=== PATIENT | male | born 1945 | race Caucasian/White ===

== ENCOUNTER → 2017-09-26 09:20 | Outpatient (CLI) | payer MEDICARE, SELFPAY ==
[2017-09-26 12:27] LABS: Absolute Lymphocyte Count 2.58 X10^3/ul (0.83-4.51); Absolute Neutrophil Count 6.4 X10^3/uL (2.0-7.7); Basophil# 0.06 X10^3/uL; Basophil% 0.6 % (0-1); Eosinophil# 0.66 X10^3/uL; Eosinophils% 6.2 % (0-5); Hematocrit 44.2 % (40-54); Hemoglobin 14.5 g/dl (13.0-16.5); Lymphocyte # 2.58 X10^3/ul (4.0); Lymphocyte % 24.3 % (19-41); Mean Corp Hgb Conc 32.8 g/gl (32-36); Mean Corpuscular Hgb 30.1 pg (27.0-32.0); Mean Corpuscular Volume 91.9 fL (80-94); Mean Platelet Vol. 11.3 fl (6.2-12.0); Monocyte# 0.91 X10^3/uL; Monocyte% 8.6 % (0-10); Neutrophil # 6.39 X10^3/uL (2.7-7.7); Neutrophil % 60.1 % (47-70); Platelet Count 214 K/mm3 (150-450); RBC Distribution Width CV 14.5 % (11.6-14.6); RBC Distribution Width SD 47.3 fl (35.1-43.9); Red Blood Count 4.81 M/mm3 (4.6-6.2); White Blood Count 10.6 K/mm3 (4.4-11.0)
[2017-09-26 12:31] LABS: AST(SGOT) 20 U/L (15-37); Alanine Aminotransfer ALT/SGPT 26 U/L (16-61); Albumin, Serum 3.8 g/dL (3.2-5.0); Alkaline Phosphatase 94 U/L (45-117); Anion Gap 7 (5-15); BUN 21 mg/dL (7-18); BUN/Creat Ratio 14.2 RATIO (10-20); Calcium,Total 8.9 mg/dL (8.5-10.1); Chloride 106 mmol/L (98-107); Creatinine, Serum 1.48 mg/dL (0.70-1.30); EST Glomerular Filtration Rate 49 mL/min (>60); Est Glom Filt Rate - Afr Amer 60 mL/min (>60); Globulin 3.8 g/dL (2.2-4.2); Glucose 139 mg/dL (70-110); POSITIVE COUNT NO; POSITIVE DIFFERENTIAL NO; POSITIVE MORPHOLOGY NO; Potassium 3.8 mmol/L (3.5-5.1); Protein, Total 7.6 g/dL (6.4-8.2); Sodium Level 143 mmol/L (136-145); Thyroid Stim Hormone (TSH) 3.54 uIU/mL (0.358-3.74)
== END ==
PROVIDERS: Family Provider Family Medicine Geriatric Medicine; PCP Family Medicine Geriatric Medicine; Visit Provider Family Medicine Geriatric Medicine
DX: E11.9 Type 2 diabetes mellitus without complications (principal); I10 Essential (primary) hypertension
CPT/HCPCS: 36415; 80053; 84443; 85025

== ENCOUNTER → 2017-11-27 11:41 | Outpatient (CLI) | payer MEDICARE, SELFPAY ==
[2017-11-27 12:08] LABS: Hemoglobin 14.6 g/dl (13.0-16.5); Mean Corp Hgb Conc 33.2 g/gl (32-36); Mean Corpuscular Hgb 30.5 pg (27.0-32.0); Mean Corpuscular Volume 92.1 fL (80-94); Platelet Count 229 K/mm3 (150-450); RBC Distribution Width CV 14.6 % (11.6-14.6); RBC Distribution Width SD 47.3 fl (35.1-43.9); Red Blood Count 4.78 M/mm3 (4.6-6.2); White Blood Count 10.2 K/mm3 (4.4-11.0)
[2017-11-27 12:09] LABS: Scan Indicated on CBC? Y/N NO
[2017-11-27 12:42] LABS: Albumin, Serum 3.7 g/dL (3.2-5.0); BUN 24 mg/dL (7-18); BUN/Creat Ratio 14.8 RATIO (10-20); Calcium,Total 8.8 mg/dL (8.5-10.1); Chloride 104 mmol/L (98-107); Creatinine, Serum 1.62 mg/dL (0.70-1.30); EST Glomerular Filtration Rate 44 mL/min (>60); Est Glom Filt Rate - Afr Amer 54 mL/min (>60); Glucose 151 mg/dL (74-106); Phosphorus 2.9 mg/dL (2.5-4.9); Potassium 3.9 mmol/L (3.5-5.1); Sodium Level 141 mmol/L (136-145)
[2017-11-27 12:43] LABS: Microalbumin:Creatinine Ratio 755.7 mg/g CRE (<30 mg/g CRE)
== END ==
PROVIDERS: Family Provider Family Medicine Geriatric Medicine; PCP Family Medicine Geriatric Medicine; Visit Provider Internal Medicine Nephrology
DX: E11.22 Type 2 diabetes mellitus with diabetic chronic kidney disease (principal); N18.3 Chronic kidney disease, stage 3 (moderate)
CPT/HCPCS: 36415; 80069; 82043; 82570; 85027

== ENCOUNTER → 2017-12-12 10:38 | Outpatient (CLI) | payer MEDICARE, SELFPAY ==
[2017-12-12 14:11] LABS: Absolute Neutrophil Count 6.4 X10^3/uL (2.0-7.7); Basophil# 0.03 X10^3/uL; Basophil% 0.3 % (0-1); Eosinophil# 0.78 X10^3/uL; Eosinophils% 7.6 % (0-5); Hematocrit 45.9 % (40-54); Hemoglobin 14.6 g/dl (13.0-16.5); Lymphocyte % 20.5 % (19-41); Mean Corp Hgb Conc 31.8 g/gl (32-36); Mean Corpuscular Hgb 29.6 pg (27.0-32.0); Mean Corpuscular Volume 93.1 fL (80-94); Mean Platelet Vol. 11.2 fl (6.2-12.0); Monocyte# 0.89 X10^3/uL; Monocyte% 8.7 % (0-10); Neutrophil # 6.43 X10^3/uL (2.7-7.7); Neutrophil % 62.6 % (47-70); Platelet Count 218 K/mm3 (150-450); RBC Distribution Width CV 14.9 % (11.6-14.6); RBC Distribution Width SD 49.9 fl (35.1-43.9); Red Blood Count 4.93 M/mm3 (4.6-6.2); White Blood Count 10.3 K/mm3 (4.4-11.0)
[2017-12-12 14:12] LABS: POSITIVE COUNT NO; POSITIVE DIFFERENTIAL NO; POSITIVE MORPHOLOGY NO
[2017-12-12 14:26] LABS: AST(SGOT) 23 U/L (15-37); Alanine Aminotransfer ALT/SGPT 30 U/L (16-61); Albumin, Serum 3.8 g/dL (3.2-5.0); Alkaline Phosphatase 131 U/L (45-117); Anion Gap 9 (5-15); BUN 23 mg/dL (7-18); BUN/Creat Ratio 14.6 RATIO (10-20); Calcium,Total 8.6 mg/dL (8.5-10.1); Chloride 105 mmol/L (98-107); Creatinine, Serum 1.58 mg/dL (0.70-1.30); EST Glomerular Filtration Rate 46 mL/min (>60); Est Glom Filt Rate - Afr Amer 55 mL/min (>60); Globulin 3.8 g/dL (2.2-4.2); Glucose 150 mg/dL (74-106); Potassium 3.9 mmol/L (3.5-5.1); Protein, Total 7.6 g/dL (6.4-8.2); Sodium Level 142 mmol/L (136-145); Thyroid Stim Hormone (TSH) 2.85 uIU/mL (0.358-3.74)
[2017-12-13 08:25] LABS: Vitamin D,25 Hydroxy 56.6 ng/mL (29.95-100.01)
== END ==
PROVIDERS: Family Provider Family Medicine Geriatric Medicine; PCP Family Medicine Geriatric Medicine; Visit Provider Family Medicine Geriatric Medicine
DX: E11.9 Type 2 diabetes mellitus without complications (principal); E55.9 Vitamin D deficiency, unspecified; I10 Essential (primary) hypertension
CPT/HCPCS: 36415; 80053; 82306; 84443; 85025

== ENCOUNTER → 2018-01-15 16:26 | Outpatient (CLI) | payer MEDICARE, SELFPAY ==
--- NOTE | 2018-01-15 16:32 | RAD_ITS ---
STUDY: X-RAY CHEST REASON FOR EXAM: Male, 72 years old. COUGH HX OF QUAD BYPASS MANY YRS AGO PER PATIENT. TECHNIQUE: Frontal and lateral views of the chest. COMPARISON: None. FINDINGS: Chronic appearing increased interstitial lung markings. There are multiple median sternotomy wires. There is no demonstrated pleural abnormality. Enlarged heart size. Normal mediastinum and patricia. Normal visualized pulmonary arteries. There is atherosclerotic calcification of the aortic arch with tortuosity. There are diffuse degenerative changes of the visualized thoracic spine. There is degenerative osteoarthritis of the bilateral shoulders. There is no demonstrated abnormality of the visualized soft tissue structures of the upper abdomen. RAD/Chest PA and Lateral IMPRESSION: There are no acute findings. Electronically Signed: Scott Hagen MD at 23:58 EDT , Service support ,
== END ==
PROVIDERS: Family Provider Family Medicine Geriatric Medicine; PCP Family Medicine Geriatric Medicine; Visit Provider Family Medicine Geriatric Medicine
DX: R05 Cough (principal)
CPT/HCPCS: 71046

== ENCOUNTER → 2018-06-04 14:07 | Outpatient (CLI) | payer MEDICARE, SELFPAY ==
[2018-06-04 14:56] LABS: Absolute Lymphocyte Count 2.42 X10^3/ul (0.83-4.51); Absolute Neutrophil Count 6.1 X10^3/uL (2.0-7.7); Basophil# 0.06 X10^3/uL; Basophil% 0.6 % (0-1); Eosinophil# 0.62 X10^3/uL; Eosinophils% 6.2 % (0-5); Hematocrit 46.2 % (40-54); Hemoglobin 14.8 g/dl (13.0-16.5); Lymphocyte # 2.42 X10^3/ul (4.0); Lymphocyte % 24.1 % (19-41); Mean Corpuscular Hgb 30.1 pg (27.0-32.0); Mean Corpuscular Volume 94.1 fL (80-94); Mean Platelet Vol. 10.7 fl (6.2-12.0); Monocyte# 0.85 X10^3/uL; Monocyte% 8.5 % (0-10); Neutrophil # 6.08 X10^3/uL (2.7-7.7); Neutrophil % 60.5 % (47-70); Platelet Count 212 K/mm3 (150-450); RBC Distribution Width CV 14.2 % (11.6-14.6); RBC Distribution Width SD 48.1 fl (35.1-43.9); Red Blood Count 4.91 M/mm3 (4.6-6.2)
[2018-06-04 14:58] LABS: POSITIVE COUNT NO; POSITIVE DIFFERENTIAL NO; POSITIVE MORPHOLOGY NO
[2018-06-04 15:19] LABS: Albumin, Serum 3.6 g/dL (3.2-5.0); BUN 24 mg/dL (7-18); Bilirubin, Direct 0.14 mg/dL (0.00-0.30); Chloride 104 mmol/L (98-107); Cholesterol 111 mg/dL (200); Creatinine, Serum 1.41 mg/dL (0.70-1.30); EST Glomerular Filtration Rate 52 mL/min (>60); Est Glom Filt Rate - Afr Amer 63 mL/min (>60); Glucose 165 mg/dL (74-106); High Density Lipoprotein 33 mg/dL; Phosphorus 2.8 mg/dL (2.5-4.9); Potassium 4.1 mmol/L (3.5-5.1); Sodium Level 141 mmol/L (136-145); Thyroid Stim Hormone (TSH) 3.07 uIU/mL (0.358-3.74); Triglycerides 169 mg/dL; Very Low Density Lipoprotein 34 mg/dL (5-40)
[2018-06-04 15:20] LABS: Vitamin D,25 Hydroxy 42.7 ng/mL (29.95-100.01)
[2018-06-04 15:21] LABS: Hemoglobin A1c 7.8 % (4.2-6.3)
[2018-06-04 15:29] LABS: PTHIN 129.8 pg/mL (18.4-80.1)
[2018-06-04 15:55] LABS: Microalbumin:Creatinine Ratio 894.6 mg/g CRE (<30 mg/g CRE)
== END ==
PROVIDERS: Internal Medicine Nephrology; Family Provider Family Medicine Geriatric Medicine; PCP Family Medicine Geriatric Medicine; Visit Provider Family Medicine Geriatric Medicine
DX: E11.22 Type 2 diabetes mellitus with diabetic chronic kidney disease (principal); N18.3 Chronic kidney disease, stage 3 (moderate); E55.9 Vitamin D deficiency, unspecified; E78.49 Other hyperlipidemia; I10 Essential (primary) hypertension
CPT/HCPCS: 36415; 80061; 80069; 82043; 82248; 82306; 82570; 83036; 83970; 84443; 85025

== ENCOUNTER → 2018-10-22 06:33 | Outpatient (CLI) | payer MEDICARE, SELFPAY ==
[2018-10-09 10:21] VITALS: BMI 36.3
--- NOTE | 2018-10-22 09:48 | STRESSREP ---
Stress Test Report Pharmacologic myocardial perfusion stress test. 73-year-old man with a history of coronary artery bypass surgery. Medications: Aspirin, atorvastatin, ramipril, amlodipine, metoprolol, rivaroxaban. Stress protocol: Resting EKG demonstrates atrial fibrillation with a rate of 104 bpm resting blood pressure 164/82 mmHg. 0.4 mg of regadenoson was infused per usual protocol followed by rapid intravenous saline flush injection continuous EKG monitoring was performed. The maximum heart rate attained was 133 bpm which was 91% of maximum predicted heart rate the maximum workload was 1 metabolic equivalent. The resting blood pressure 164/82 final blood pressure 138/86. At rest and during peak infusion nonspecific ST-T wave changes were noted. Myocardial perfusion protocol. 14.7 mCi of technetium 99m sestamibi was injected at rest. 0.4 mg of regadenoson was infused per usual protocol peak infusion 44.2 mCi of technetium 99m sestamibi was injected stress images obtained stress and rest images were reconstructed and compared in the short axis vertical and horizontal long axis. Gated images was obtained Myocardial perfusion SPECT analysis: Review of the stress images demonstrate normal uptake of tracer noted in all areas of myocardium. The resting images similarly demonstrate normal uptake of tracer noted in all areas of the myocardium. No areas of reversibility are noted suggest ischemia no previous infarct is noted. Gated SPECT analysis: The gated ejection fraction is noted to be 48%. Conclusion: Normal pharmacologic myocardial perfusion stress test. Atrial fibrillation noted. Preserved ejection fraction
== END ==
PROVIDERS: Family Provider Family Medicine Geriatric Medicine; PCP Family Medicine Geriatric Medicine; Referring Provider Physician Assistant Medical; Visit Provider Physician Assistant Medical
DX: I25.10 Atherosclerotic heart disease of native coronary artery without angina pectoris (principal); I48.0 Paroxysmal atrial fibrillation; I10 Essential (primary) hypertension; E78.00 Pure hypercholesterolemia, unspecified
CPT/HCPCS: 78452; 93017; A9500; A4216; J2785

== ENCOUNTER 2018-12-12 16:17 | Emergency (ER) | payer MEDICARE, SELFPAY ==
[2018-10-09 10:21] VITALS: BMI 36.3
[2018-12-12 16:18] VITALS: BP 154/81; PULSE 66; RESP 18; TEMP 36.1; O2SAT 93; BMI 34.8
--- NOTE | 2018-12-12 18:05 | ED.DCSUM_ITS ---
- ER Visit Summary Date of Service: 12/12/18 Chief Complaint: Rash History of Present Illness: The patient is a 73 M with a rash to his right anterior means. This came up gradually over a few days. Nothing seemed to bring it on. He never had this before. No fever or associated symptoms. No trauma or skin breaks. He is a diabetic. He takes Xarelto. Physical Examination: Afebrile and vital signs are unremarkable. Right anterior means is erythematous and tender to palpation. The rash involves about half of the anterior surface of his means. He is neurovascular intact distally with good pulses and sensation. No deformities. Good range of motion. Skin intact. Test Results: None indicated Emergency Department Course and Treatment: Patient presents with cellulitis. He has no fever or systemic symptoms. Nothing to suggest sepsis or more serious infection. No crepitus. No trauma. Patient is appropriate for treatment with antibiotics. Will treat with Bactrim and Keflex. He is appropriate for outpatient treatment. He was advised to return for new or worsening issues. Treatment Plan: As above Disposition: Discharge Impression: 1. Right leg cellulitis This note was generated with [employer] (formerly [employer]ation software. It may contain incorrect words, spelling, and punctuation that were not noted in review of the chart prior to signing ED Disposition - Plan for ED Patient: Referrals: Omar Jose Chi, MD [Primary Care Provider] -
--- NOTE | 2018-12-12 18:05 | ED.DEP ---
ED Disposition - Plan for ED Patient: Instructions: Discharge Instructions for Cellulitis Prescriptions: Smz/Tmp Ds [Bactrim Ds] 1 tab PO BID #14 tab Cephalexin [Keflex] 500 mg PO Q6H #28 cap Referrals: Omar Jose Chi, MD [Primary Care Provider] -
[2018-12-12] MEDS: Cephalexin 250 MG Capsule 500 MG PO (18:20)
[2018-12-12] MEDS: Smz/Tmp Ds Tablet 1 TABLET PO (18:20)
[2018-12-12 18:31] VITALS: BP 154/81; PULSE 66; RESP 18; TEMP 35.5; O2SAT 98
== END 2018-12-12 18:34 | disposition home or self-care (01) ==
PROVIDERS: Emergency Provider Emergency Medicine; Family Provider Family Medicine Geriatric Medicine; PCP Family Medicine Geriatric Medicine
DX: L03.115 Cellulitis of right lower limb (principal); E11.9 Type 2 diabetes mellitus without complications; Z79.01 Long term (current) use of anticoagulants; Z79.82 Long term (current) use of aspirin; Z79.84 Long term (current) use of oral hypoglycemic drugs; Z79.899 Other long term (current) drug therapy
CPT/HCPCS: 99284

== ENCOUNTER → 2018-12-17 | Outpatient (CLI) | payer MEDICARE, SELFPAY ==
[2018-12-12 16:18] VITALS: BMI 34.8
[2018-12-17 12:52] LABS: Absolute Lymphocyte Count 1.52 X10^3/ul (0.83-4.51); Basophil# 0.06 X10^3/uL; Basophil% 0.8 % (0-1); Eosinophil# 0.52 X10^3/uL; Eosinophils% 6.7 % (0-5); Hematocrit 44.3 % (40-54); Hemoglobin 14.4 g/dl (13.0-16.5); Lymphocyte # 1.52 X10^3/ul (4.0); Lymphocyte % 19.5 % (19-41); Mean Corp Hgb Conc 32.5 g/gl (32-36); Mean Corpuscular Volume 92.3 fL (80-94); Mean Platelet Vol. 11.1 fl (6.2-12.0); Monocyte# 0.67 X10^3/uL; Monocyte% 8.6 % (0-10); Neutrophil % 64.1 % (47-70); Platelet Count 214 K/mm3 (150-450); RBC Distribution Width CV 14.1 % (11.6-14.6); RBC Distribution Width SD 47.2 fl (35.1-43.9); White Blood Count 7.8 K/mm3 (4.4-11.0)
[2018-12-17 12:55] LABS: POSITIVE COUNT NO; POSITIVE DIFFERENTIAL NO; POSITIVE MORPHOLOGY NO
[2018-12-17 13:07] LABS: ALB/GLOB Ratio 0.9 RATIO (0.9-2.4); AST(SGOT) 17 U/L (15-37); Alanine Aminotransfer ALT/SGPT 20 U/L (16-61); Albumin, Serum 3.7 g/dL (3.2-5.0); Alkaline Phosphatase 79 U/L (45-117); Anion Gap 5 (5-15); BUN 26 mg/dL (7-18); BUN/Creat Ratio 15.6 RATIO (10-20); Calcium,Total 8.8 mg/dL (8.5-10.1); Chloride 108 mmol/L (98-107); Creatinine, Serum 1.67 mg/dL (0.70-1.30); EST Glomerular Filtration Rate 43 mL/min (>60); Est Glom Filt Rate - Afr Amer 52 mL/min (>60); Globulin 3.9 g/dL (2.2-4.2); Glucose 137 mg/dL (74-106); Potassium 3.9 mmol/L (3.5-5.1); Protein, Total 7.6 g/dL (6.4-8.2); Sodium Level 142 mmol/L (136-145); Thyroid Stim Hormone (TSH) 2.97 uIU/mL (0.358-3.74)
== END | disposition home or self-care (01) ==
LOC: POLAB3 11:32
PROVIDERS: Family Provider Family Medicine Geriatric Medicine; PCP Family Medicine Geriatric Medicine; Visit Provider Family Medicine Geriatric Medicine
DX: E11.9 Type 2 diabetes mellitus without complications (principal); E55.9 Vitamin D deficiency, unspecified; I10 Essential (primary) hypertension
CPT/HCPCS: 36415; 80053; 82306; 84443; 85025

== ENCOUNTER → 2019-02-12 | Outpatient (CLI) | payer MEDICARE, SELFPAY ==
[2019-02-12 12:34] LABS: Albumin, Serum 3.7 g/dL (3.2-5.0); BUN 22 mg/dL (7-18); BUN/Creat Ratio 14.8 RATIO (10-20); Calcium,Total 8.9 mg/dL (8.5-10.1); Chloride 105 mmol/L (98-107); Creatinine, Serum 1.49 mg/dL (0.70-1.30); EST Glomerular Filtration Rate 49 mL/min (>60); Est Glom Filt Rate - Afr Amer 59 mL/min (>60); Glucose 129 mg/dL (74-106); Phosphorus 2.5 mg/dL (2.5-4.9); Potassium 3.8 mmol/L (3.5-5.1); Sodium Level 143 mmol/L (136-145)
[2019-02-12 12:43] LABS: Vitamin D,25 Hydroxy 31.2 ng/mL (29.95-100.01)
[2019-02-12 12:49] LABS: PTHIN 162.7 pg/mL (18.4-80.1)
== END | disposition home or self-care (01) ==
LOC: POLAB3 11:23
PROVIDERS: Visit Provider Internal Medicine Nephrology
DX: N18.3 Chronic kidney disease, stage 3 (moderate) (principal)
CPT/HCPCS: 36415; 80069; 82306; 83970

== ENCOUNTER → 2019-05-27 16:37 | Outpatient (CLI) | payer MEDICARE, SELFPAY ==
[2019-04-16 12:55] VITALS: BMI 34.7
== END ==
PROVIDERS: Family Provider Family Medicine Geriatric Medicine; PCP Family Medicine Geriatric Medicine; Referring Provider Family Medicine Geriatric Medicine; Visit Provider Family Medicine Geriatric Medicine
DX: R68.83 Chills (without fever) (principal)
CPT/HCPCS: 87633

== ENCOUNTER → 2019-06-24 12:00 | Outpatient (CLI) | payer MEDICARE, SELFPAY ==
[2019-04-16 12:55] VITALS: BMI 34.7
[2019-06-24 12:42] LABS: Absolute Lymphocyte Count 2.38 X10^3/uL (0.83-4.51); Absolute Neutrophil Count 6.3 X10^3/uL (2.0-7.7); Basophil# 0.06 X10^3/uL; Basophil% 0.6 % (0-1); Eosinophil# 0.31 X10^3/uL; Eosinophils% 3.1 % (0-5); Hematocrit 48.3 % (40-54); Hemoglobin 15.6 g/dL (13.0-16.5); Lymphocyte # 2.38 X10^3/ul (4.0); Mean Corp Hgb Conc 32.3 g/dL (32-36); Mean Corpuscular Hgb 30.4 pg (27.0-32.0); Mean Corpuscular Volume 94.2 fL (80-94); Mean Platelet Vol. 10.6 fl (6.2-12.0); Monocyte# 0.79 X10^3/uL; NRBC Flagged by Analyzer 0 % (0-5); Neutrophil # 6.34 X10^3/uL (2.7-7.7); Neutrophil % 63.9 % (47-70); Platelet Count 186 K/mm3 (150-450); RBC Distribution Width CV 14.3 % (11.6-14.6); RBC Distribution Width SD 49.7 fl (35.1-43.9); Red Blood Count 5.13 M/mm3 (4.6-6.2); White Blood Count 9.9 K/mm3 (4.4-11.0)
[2019-06-24 13:09] LABS: AST(SGOT) 16 U/L (15-37); Alanine Aminotransfer ALT/SGPT 26 U/L (16-61); Alkaline Phosphatase 81 U/L (45-117); Anion Gap 5 (5-15); BUN 31 mg/dL (7-18); BUN/Creat Ratio 18.7 RATIO (10-20); Calcium,Total 9.3 mg/dL (8.5-10.1); Chloride 104 mmol/L (98-107); Creatinine, Serum 1.66 mg/dL (0.70-1.30); EST Glomerular Filtration Rate 43 mL/min (>60); Est Glom Filt Rate - Afr Amer 52 mL/min (>60); Globulin 3.9 g/dL (2.2-4.2); Glucose 147 mg/dL (74-106); Potassium 3.8 mmol/L (3.5-5.1); Protein, Total 7.9 g/dL (6.4-8.2); Sodium Level 141 mmol/L (136-145); Thyroid Stim Hormone (TSH) 4.12 uIU/mL (0.358-3.74)
== END ==
PROVIDERS: Family Provider Family Medicine Geriatric Medicine; PCP Family Medicine Geriatric Medicine; Visit Provider Family Medicine Geriatric Medicine
DX: E11.9 Type 2 diabetes mellitus without complications (principal); E55.9 Vitamin D deficiency, unspecified; I10 Essential (primary) hypertension
CPT/HCPCS: 36415; 80053; 82306; 84443; 85025

== ENCOUNTER → 2019-08-27 12:08 | Outpatient (CLI) | payer MEDICARE, SELFPAY ==
[2019-04-16 12:55] VITALS: BMI 34.7
[2019-08-27 12:54] LABS: Protein, Urine (Random) 39.8 mg/dL (<11.9); Protein:Creat Ratio 1236 mg/g CRE (0-200)
[2019-08-27 13:09] LABS: PTHIN 72.8 pg/mL (18.4-80.1)
[2019-08-27 13:18] LABS: Albumin, Serum 3.8 g/dL (3.2-5.0); BUN 32 mg/dL (7-18); BUN/Creat Ratio 19.2 RATIO (10-20); Calcium,Total 9.4 mg/dL (8.5-10.1); Chloride 107 mmol/L (98-107); Creatinine, Serum 1.67 mg/dL (0.70-1.30); EST Glomerular Filtration Rate 43 mL/min (>60); Est Glom Filt Rate - Afr Amer 52 mL/min (>60); Glucose 103 mg/dL (74-106); Potassium 3.9 mmol/L (3.5-5.1); Sodium Level 143 mmol/L (136-145); Thyroid Stim Hormone (TSH) 2.03 uIU/mL (0.358-3.74)
== END ==
PROVIDERS: Family Provider Family Medicine Geriatric Medicine; PCP Family Medicine Geriatric Medicine; Visit Provider Internal Medicine Nephrology
DX: E11.22 Type 2 diabetes mellitus with diabetic chronic kidney disease (principal); N18.3 Chronic kidney disease, stage 3 (moderate); E03.9 Hypothyroidism, unspecified
CPT/HCPCS: 36415; 80069; 82570; 83970; 84156; 84443

== ENCOUNTER 2019-09-09 09:31 | Inpatient (IN) | payer MEDICARE, SELFPAY ==
[2019-09-06 13:29] VITALS: BMI 34.8
[2019-09-09] VITALS (40 sets, daily range): BP systolic 93–126; BP diastolic 54–103; PULSE 35–59; RESP 14–30; TEMP 36.5–37.2; O2SAT 6–97; BMI 37.8; BMI 37.7
--- NOTE | 2019-09-09 09:34 | RAD_ITS ---
STUDY: X-RAY CHEST REASON FOR EXAM: Male, 74 years old. STROKE Protocol, mediastinal EVALUATION POST HEART CATH TODAY, ETT AND OG PLACEMENT TECHNIQUE: Single AP portable view of the chest. COMPARISON: Comparison is made with prior study dated September 06, 2019. FINDINGS: An endotracheal tube is in situ. The tip is at 4 cm proximal to the jennifer. EKG electrodes are seen. There is evidence of vascular congestion and mild degree of CHF. Mild blunting of both costophrenic angles. Sternal cerclage wires and vascular clips are present from a prior sternotomy and coronary artery bypass graft procedure (CABG). Moderate cardiomegaly. Normal mediastinum and patricia. Normal visualized pulmonary arteries. There is atherosclerotic calcification of the aortic arch with tortuosity. There are diffuse degenerative changes of the visualized thoracic spine. Normal visualized ribs, clavicles, and shoulders. There is no demonstrated abnormality of the visualized soft tissue structures of the upper abdomen. RAD/Chest 1 View IMPRESSION: The tip of the endotracheal tube is at 4 cm proximal to the jennifer. Cardiomegaly and mild degree of CHF. Electronically Signed: Aj Johnson, at 11:09 EST , Service support ,
--- NOTE | 2019-09-09 09:34 | EKG12_ITS ---
Test Reason : STROKE Blood Pressure : / mmHG Vent. Rate : 047 BPM Atrial Rate : 047 BPM P-R Int : 228 ms QRS Dur : 094 ms QT Int : 494 ms P-R-T Axes : 046 -27 089 degrees QTc Int : 437 ms Sinus bradycardia 2:1 Heart Block Possible Left Atrial enlargement Left ventricular hypertrophy with repolarization abnormality Abnormal ECG Confirmed by PAMELA RASMUSSEN, WILLOW ([id number]), rewrite editor RACHAEL DAUGHERTY ([id number]) on 09/10/2019 10:11:08 AM Referred By: Gaurang Ellington Confirmed By:WILLOW SANTIAGO MD
--- NOTE | 2019-09-09 09:47 | ED.VIS.STROK ---
History of Present Illness Chief Complaint: Neuro S/Sx Onset: Today 909 Context: Sudden Onset - 5 min after finishing outpt heart cath Timing: Continuous Onset: abrupt Current Severity: Severe Maximum Severity: Severe Narrative: Patient was having exertional chest pain for weeks and had an outpatient heart cath. While in the Hand Counter 5 minutes after completion of the case, he started having confusion and trouble speaking. A stroke team was called, he was sent to CT and then brought to the emergency department and he was seen upon arrival. The patient had been on Xarelto for A. fib and held it for 3 days prior to this heart cath. He has been on aspirin and Plavix since then, no other antiplatelet or anticoagulants. The sheath clotted off during the cath, so they removed it and no intravascular device was placed on the femoral artery on the right where the puncture was performed. The patient did not receive heparin while in the Hand Counter or any other anticoagulant medication. - Past Medical History (1) Exertional angina Status: Chronic (2) Atherosclerotic heart disease of [place] coronary artery without angina pectoris Status: Chronic Comment: CABG x 4 MILAN-LAD, SVG-OM1, Sequential Saphenous Vein Y graft from the OM1 venous graft-OM3 and LPDA 11/17/2003. 02/20/1997 J stent of proximal CX. (3) Essential (primary) hypertension Status: Chronic (4) H/O coronary artery bypass surgery Status: Chronic Comment: CABG X 4: MILAN-LAD, SVG-OM1, Sequential Saphenous Vein Y graft from the OM1 venous graft-OM3 and LPDA 11/17/2003. (5) HLD (hyperlipidemia) Status: Chronic (6) Paroxysmal atrial fibrillation Status: Chronic (7) Paroxysmal atrial flutter Status: Chronic (8) History of coronary artery stent placement Status: Resolved Comment: 02/20/1997 J stent of proximal main CX Past Medical History - Allergies and Home Meds Allergies/Adverse Reactions: Allergies pollen Allergy (Uncoded 09/06/19 08:01) Sneezing, eyes water Primary Care Physician: Omar Jose Chi, MD [Primary Care Provider] - Smoking Status: Former smoker Review of Systems ROS: Unable to Obtain STROKE Vital Signs/Narrative: Vital Signs Pulse Resp BP Pulse Ox 09/09/19 09:35 43 L 16 117/65 96 Inital Vital Signs reviewed: Yes - NIHSS Initial 1a Level of Consciousness: 1 1b LOC Questions (Score 2 if aphasic/stupor): 2 1c LOC Commands (Only score 1st attempt): 2 2 Best Gaze (If aphasic, use reflexive mvmts.): 1 3 Visual: 2 4 Facial Palsy: 2 5 Motor Arm Right (UN = amputation/fusion): 4 5 Motor Arm Left: 0 6 Motor Leg Right: 4 6 Motor Leg Left: 0 7 Limb ataxia (Only + if out of proportion): 0 8 Sensory (Aphasia/stupor=0 or 1, coma=2): 2 9 Best Language: 3 10 Dysarthria (mute, coma=2, intubated=UN): 2 11 Extinction and Inattention (only scored if +): 0 Total Score: 25 General: Well nourished, Well developed Head: Normocephalic, Atraumatic Eyes: Perrl, EOMI ENT: Moist mucous membranes, No rhinorrhea Neck: Supple, Nontender, No JVD Cardiovascular: Regular rate, Regular rhythm, No murmurs, Bradycardia Respiratory: No distress, CTA bilaterally, Chest nontender Abdomen: Soft, Nontender, Nondistended, Normal bowel sounds Back: Nontender, Normal Inspection Extremities: Nontender, No edema Skin: Normal color, No rash, No Trauma, - - ecchymosis at right femoral artery site, good distal pulse Neurological: Confused, Lethargic - easily alerts to voice Diagnostic/Tx/Re-eval CT/CTA Head AND Neck W/ Contrast IMPRESSION: Calcific plaques at the origin of the right and left carotid arteries with less than 50% narrowing. Attenuation of the branches of the left middle cerebral artery in the sylvian fissure. Mild degree of pansinusitis. Electronically Signed: Aj Johnson, at 10:23 EST 09/09/19 09:34 Chest 1 View [RAD] Stat Laboratory Results 09/09/19 09/09/19 09/09/19 09:40 09:40 09:40 WBC 11.8 H RBC 3.36 L Hgb 10.4 L Hct 32.4 L MCV 96.4 H MCH 31.0 MCHC 32.1 RDW Std Deviation 51.8 H RDW Coeff of Elias 15.1 H Plt Count 188 MPV 10.8 Immature Gran % (Auto) 0.500 Neut % (Auto) 74.1 H Lymph % (Auto) 12.8 L [place] % (Auto) 11.4 H Eos % (Auto) 0.8 Baso % (Auto) 0.4 Absolute Neuts (auto) 8.7 H Absolute Lymphs (auto) 1.51 Nucleated RBC % 0 PT 16.8 H INR 1.4 APTT 41.0 H Sodium 137 Potassium 4.5 Chloride 105 Carbon Dioxide 27.0 Anion Gap 5 BUN 40 H Creatinine 1.84 H Estim Creat Clear Calc 33.04 Est GFR (MDRD) Af Amer 46 L Est GFR (MDRD) Non-Af 38 L BUN/Creatinine Ratio 21.7 H Glucose 91 Calcium 8.5 Troponin I 11.300 H* Chest X-Ray - ED: 1 View, Read by ED Physician, Chronic Changes, - - good ETT placement - Rhythm Strip Rhythm Strip: Sinus Rhythm - w/ 2:1 conduction Rate: 60 Ectopy: None - EKG Initial EKG Interpretation: Sinus Rhythm, S-T Elevation - Concave, 1 mm, inferior leads, S-T Depression - 1 mm 1, aVL, - - 2:1 conduction - Medical Decision Making Stroke Team Activated: Yes - PATIENT PLACEMENT COORDINATOR Reviewed Inclusion/Exclusion criteria: Yes Was Patient considered for Endovascular Intervention?: No - no LVO on CTA IV Alteplase (t-PA) Administered: Yes No contraindications for IV Alteplase (t-PA) administration.: No Alteplase (t-PA) risks, benefits, alternative discussed: Yes - pt not able to discuss, fam not avail, emergent situation Discussed with neurology during emergent stroke consultation via tele-stroke evaluation with [facility] neurology, she agrees TPA is indicated unless the cardiology team does not want it for any particular reason. Other than the arterial puncture, they are comfortable with treating the stroke with TPA. We did have Hand Counter staff place a FemoStop compressive device on the femoral artery puncture site in the right groin prior to starting TPA, which was ordered expeditiously. The patient had one bout of transient hemodynamic instability which appeared to be a vasovagal response to Andrade catheter being placed, again prior to starting TPA. His pulse went down to the 40s, and his blood pressure dropped to 73 systolic. During this, he had the same level of consciousness, and actually used his left hand and put it behind his head as if he was relaxing. However his pulse ox continued to be borderline, even with a 6 L nasal cannula, as the patient was mainly breathing through his mouth and probably hypoxemic. His pulse ox dropped into the high 80s, and he maintained a constant level of lethargy. I decided it would be best to intubate him. This was performed after the TPA bolus was performed, using direct laryngoscopy with a #4 blade after pretreatment with etomidate 20 mg and succinylcholine 100 mg and preoxygenation to 98% using BMV, pulling back the epiglottis was necessary to fully visualize the cords which was done, passing the tube through it. It initially was secured at 25 cm at the lip, there was good color change on CO2, his lungs are diminished and more so on the left, and his pulse ox began to drop from the high 90s to the high 60s, during which this was immediately recognized, I had respiratory pulled the tube back to 23 cm at the lip and reevaluated, his breath sounds were more equal and his pulse ox shaun back to the high 90s. He started withdrawing to the ETT. Ativan 2 mg was given which was inadequate. Plan is to start him on a fentanyl drip and continue Ativan as needed for that, given that his blood pressures are relatively low and I do not want to introduce propofol due to that. At this time, it is 1011 and CTA read is still pending (done along with plain CT prior to ED arrival). Small vessel distal occlusions in the left MCA territory. Plan is to admit him to the ICU and continue the TPA drip. Discussed with Dr. Shepherd, banding machine operator, and with hospitalist Dr. Ellington. Chest x-ray was evaluated, 1 view, by myself, showing chronic pulmonary airspace abnormalities, possibly acute congestion on top of the, cardiomegaly, and good ETT placement. EKG was obtained after all of the above, due to agitation while on the ventilator, and other activities that were being done. It is consistent with a STEMI. His troponin did come back elevated over 11. I discussed with Dr. Andersen, he agrees that there is nothing else indicated at this time since the patient is getting thrombolytic therapy. He will continue to monitor in the ICU. Critical care time (excluding procedures): 30-74 minutes - 40 minutes, including time spent discussing with consultants, arranging admission, performing direct patient care to bedside ED Disposition - Plan for ED Patient[facility]: Acute ischemic left MCA stroke, Acute and chronic respiratory failure with hypoxia, Acute [place] Referrals: Omar Jose Chi, MD [Primary Care Provider] -
[2019-09-09 09:49] LABS: Absolute Lymphocyte Count 1.51 X10^3/uL (0.83-4.51); Absolute Neutrophil Count 8.7 X10^3/uL (2.0-7.7); Basophil# 0.05 X10^3/uL; Basophil% 0.4 % (0-1); Eosinophils% 0.8 % (0-5); Hematocrit 32.4 % (40-54); Hemoglobin 10.4 g/dL (13.0-16.5); Lymphocyte # 1.51 X10^3/ul (4.0); Lymphocyte % 12.8 % (19-41); Mean Corp Hgb Conc 32.1 g/dL (32-36); Mean Corpuscular Volume 96.4 fL (80-94); Mean Platelet Vol. 10.8 fl (6.2-12.0); Monocyte# 1.34 X10^3/uL; Monocyte% 11.4 % (0-10); NRBC Flagged by Analyzer 0 % (0-5); Neutrophil # 8.71 X10^3/uL (2.7-7.7); Neutrophil % 74.1 % (47-70); Platelet Count 188 K/mm3 (150-450); RBC Distribution Width CV 15.1 % (11.6-14.6); RBC Distribution Width SD 51.8 fl (35.1-43.9); Red Blood Count 3.36 M/mm3 (4.6-6.2); White Blood Count 11.8 K/mm3 (4.4-11.0)
[2019-09-09] MEDS: Etomidate 20 MG/10 ML Vial IV (10:00)
[2019-09-09 10:07] LABS: Anion Gap 5 (5-15); BUN 40 mg/dL (7-18); BUN/Creat Ratio 21.7 RATIO (10-20); Calcium,Total 8.5 mg/dL (8.5-10.1); Chloride 105 mmol/L (98-107); Creatinine, Serum 1.84 mg/dL (0.70-1.30); EST Glomerular Filtration Rate 38 mL/min (>60); Est Glom Filt Rate - Afr Amer 46 mL/min (>60); Estimated Creatinine Clearance 33.04 ml/min; Glucose 91 mg/dL (74-106); Potassium 4.5 mmol/L (3.5-5.1); Sodium Level 137 mmol/L (136-145)
[2019-09-09] MEDS: LORazepam 2 MG/ML Syringe IV (10:10)
[2019-09-09 10:15] LABS: International Normalized Ratio 1.4; Prothrombin Time (Protime)PT. 16.8 SECONDS (11.7-14.9)
[2019-09-09] MEDS: fentaNYL drip 100 ML 2.5 MCG IV (10:40)
--- NOTE | 2019-09-09 11:02 | ED.RN ---
[address] ED FROM CT. POST HEAR CATH. TELESTROKE AT BEDSIDE. DR TURNER AT BEDSIDE. 0945 DAS PLACED. DECISION TO INTUBATED D/T SATS 90% AND SNORING BREATHING. 1000 ATOMIDATED AND SUCC GIVEN. 1002 INTUEATED 7.5 WITH 24 AT LIP. COLOR CHANGE. 96% HR 66 KOLBY LS 1003 SATS 66% ET TUBED ADJUSTED 23 AT LIP. SATS 96%. KOLBY LUNG SOUNDS 1010 COUGHING AND RESTLESS. 2MG ATIVAN GIVEN.
--- NOTE | 2019-09-09 11:33 | PCM.HP.STD ---
Problem List (1) Acute respiratory failure Status: Acute (2) Type 2 diabetes mellitus Status: Chronic (3) Acute ischemic left MCA stroke Status: Acute (4) History of coronary artery stent placement Status: Chronic Comment: 02/20/1997 J stent of proximal main CX (5) H/O coronary artery bypass surgery Status: Chronic Comment: CABG X 4: MILAN-LAD, SVG-OM1, Sequential Saphenous Vein Y graft from the OM1 venous graft-OM3 and LPDA 11/17/2003. (6) Paroxysmal atrial fibrillation Status: Chronic (7) Paroxysmal atrial flutter Status: Chronic (8) Essential (primary) hypertension Status: Chronic (9) HLD (hyperlipidemia) Status: Chronic Qualifiers: Hyperlipidemia type: pure hypercholesterolemia Qualified Code(s): E78.00 - Pure hypercholesterolemia, unspecified; E78.0 - Pure hypercholesterolemia History of Present Illness Date of Admission: 09/09/19 Chief Complaint: Confusion, trouble speaking. The patient is a 74 year old M patient with past medical history as mentioned above presented to the emergency room from the [facility] for confusion and trouble speaking. At this time, patient is intubated and sedated and not able to provide any history. Patient's and son was at the bedside. Patient had cardiac catheterization this morning and after completing the cardiac catheterization, he started having confusion and trouble speaking. Stroke alert team was called and patient was sent to CT scan brain urgently. Afterwards, patient was taken to ED for evaluation. According to the ER physician, his NIH stroke scale was 25. Stat CT scan brain showed no acute infarct or hemorrhage. CTA of the head and neck revealed calcified plaque at the origin of the right and left carotid arteries with less than 50% stenosis, attenuation of the branches of the left MCA. Tele-neurology consult was obtained immediately and recommended TPA. TPA was started in the ED. During the course in the emergency department, ER physician mentioned that patient was not able to maintain his airway. He was intubated and started mechanical ventilation for airway protection. He had a history of CAD status post stents and CABG and he went for cardiac catheterization today for worsening angina and revealed no significant disease on main left coronary artery, proximal LAD is occluded, left circumflex is 70 to 80% stenosis, ostial RCA 80% stenosis, grafts are patent and decision was made to continue the current treatment. He had a history of type 2 diabetes mellitus, has been on glimepiride and pioglitazone and according to his , his sugar has been not well controlled. He had a history of paroxysmal atrial fibrillation, has been on metoprolol for rate control and on Xarelto for anticoagulation. At this time, his blood pressure has been borderline which is attributed to IV fentanyl drip, is bradycardic. On mechanical ventilation. His routine blood work was remarkable for mild leukocytosis, hemoglobin is 10.4 g/dL, BUN of 40 and creatinine of 1.84. Troponin was elevated at 11.3. EKG revealed sinus bradycardia, first-degree block and questionable ST elevation. CT scan brain and CTA head and neck reviewed as above. He is being admitted for acute ischemic left MCA stroke with resultant right-sided hemiplegia, acute respiratory failure and probable acute ST depression DE. Past Medical History Past Medical History (Chronic Problems): Chronic Problems (Last Updated 09/09/19 @ 11:33 by Gaurang Ellington MD) Type 2 diabetes mellitus (Chronic) Exertional angina (Chronic) Atherosclerotic heart disease of [place] coronary artery without angina pectoris (Chronic) CABG x 4 MILAN-LAD, SVG-OM1, Sequential Saphenous Vein Y graft from the OM1 venous graft-OM3 and LPDA 11/17/2003. 02/20/1997 J stent of proximal CX. History of coronary artery stent placement (Chronic 02/20/97) 02/20/1997 J stent of proximal main CX H/O coronary artery bypass surgery (Chronic 11/17/03) CABG X 4: MILAN-LAD, SVG-OM1, Sequential Saphenous Vein Y graft from the OM1 venous graft-OM3 and LPDA 11/17/2003. Paroxysmal atrial fibrillation (Chronic) Paroxysmal atrial flutter (Chronic) Essential (primary) hypertension (Chronic) HLD (hyperlipidemia) (Chronic) Medical History: Medical History (Last Updated 09/09/19 @ 11:33 by Gaurang Ellington MD) Atherosclerotic heart disease of [place] coronary artery without angina pectoris (Chronic) I25.10 CABG x 4 MILAN-LAD, SVG-OM1, Sequential Saphenous Vein Y graft from the OM1 venous graft-OM3 and LPDA 11/17/2003. 02/20/1997 J stent of proximal CX. Paroxysmal atrial fibrillation (Chronic) I48.0 Paroxysmal atrial flutter (Chronic) I48.92 Essential (primary) hypertension (Chronic) I10 HLD (hyperlipidemia) (Chronic) E78.5 DM (diabetes mellitus), type 2 with peripheral vascular complications E11.51 Obesity E66.9 Paroxysmal supraventricular tachycardia I47.1 Abnormal electrocardiogram (Inactive) R94.31 Bradycardia (Inactive) R00.1 Dyspnea (Inactive) R06.00 Allergies pollen Allergy (Uncoded 09/06/19 08:01) Sneezing, eyes water Home Medications: Ambulatory Orders Medication Instructions Recorded Aspirin [Aspirin, Baby] 81 mg PO DAILY@0800 09/19/16 Gabapentin [Neurontin] 300 mg PO BID 09/19/16 [place] 80 mg PO DAILY 09/19/16 docusate sodium 100 mg tablet 100 mg PO BID 09/13/17 nitroglycerin 0.4 mg sublingual 0.4 mg SUBLINGUAL Q5M PRN 09/13/17 tablet atorvastatin 40 mg tablet 40 mg PO QDAY 09/19/17 glimepiride 2 mg tablet 2 mg PO QAM 09/19/17 rivaroxaban 20 mg tablet 20 mg PO DAILY #90 tab 10/16/18 magnesium oxide 400 mg (241.3 mg 400 mg PO DAILY #90 tab 11/09/18 magnesium) tablet metoprolol tartrate 50 mg tablet 50 mg PO BID #180 tab 12/04/18 potassium chloride 20 mEq 20 meq PO BID #180 tab 03/15/19 tablet,extended release(part/cryst) amlodipine 5 mg tablet 5 mg PO BID #180 tab 04/16/19 cholecalciferol (vitamin D3) 25 1,000 unit PO DAILY 04/16/19 mcg (1,000 unit) capsule flaxseed oil 1,000 mg capsule 1,000 mg PO DAILY 04/16/19 mirabegron 25 mg tablet,extended PO #30 tab 04/16/19 release 24 hr ramipril 10 mg capsule 10 mg PO BID #180 cap 06/10/19 clopidogrel 75 mg tablet 75 mg PO DAILY #30 tab 09/06/19 levothyroxine 25 mcg tablet 25 mcg PO DAILY tab 09/06/19 pioglitazone 30 mg tablet 30 mg PO DAILY tab 09/06/19 Surgical History: Surgical History (Last Updated 09/09/19 @ 11:32 by Gaurang Ellington MD) History of coronary artery stent placement (Chronic) Onset Date: 02/20/97 Z95.5 02/20/1997 J stent of proximal main CX H/O coronary artery bypass surgery (Chronic) Onset Date: 11/17/03 Z95.1 CABG X 4: MILAN-LAD, SVG-OM1, Sequential Saphenous Vein Y graft from the OM1 venous graft-OM3 and LPDA 11/17/2003. History of hernia repair Onset Date: 2016 Z98.890, Z87.19 History of left heart catheterization Onset Date: 08/11/09 Z98.890 Surgical History: coronary bypass surgery, herniorrhaphy Psychiatric History: No pertinent psych hx Lives: Spouse/ Significant Other Smoking Status: Former smoker Alcohol: None Drugs: None - *Family History Maternal Family History: Family History (Last Reviewed 09/09/19 @ 11:34 by Gaurang Ellington MD) Father CAD (coronary artery disease) CHF (congestive heart failure) Mother Diabetes Review of Systems Constitutional: Reports: - - Patient has intubated, on IV fentanyl for sedation. Eyes: Reports: - - Patient has intubated, on IV fentanyl for sedation. HEENT: Reports: - - Patient has intubated, on IV fentanyl for sedation. Cardiovascular: Reports: - - Patient has intubated, on IV fentanyl for sedation. Respiratory: Reports: - - Patient has intubated, on IV fentanyl for sedation. Gastrointestinal: Reports: - - Patient has intubated, on IV fentanyl for sedation. Genitourinary: Reports: - - Patient has intubated, on IV fentanyl for sedation. Musculoskeletal: Reports: - - Patient has intubated, on IV fentanyl for sedation. Skin: Reports: - - Patient has intubated, on IV fentanyl for sedation. Neurological: Reports: - - Patient has intubated, on IV fentanyl for sedation. Psychiatric: Reports: - - Patient has intubated, on IV fentanyl for sedation. VTE Information - Inpt Only VTE Present on Admission: No VTE Mechan Device Prophylaxis: None VTE Pharm Prophylaxis ordered?: No Patient Problems: Active and Suspected Problems (Last Updated 09/09/19 @ 11:33 by Gaurang Ellington MD) Acute respiratory failure (Acute) Acute ischemic left MCA stroke (Acute) - Physical Exam Vitals/I&O's: Vital Signs Temp Pulse Resp BP Pulse Ox 97.7 F L 41 L 28 H 94/76 92 09/09/19 10:18 09/09/19 11:25 09/09/19 11:25 09/09/19 11:25 09/09/19 11:25 Oxygen Flow Rate (L/min) 6 Oxygen Delivery Method Mechanical Ventilator Weight: 248 lb 15.841 oz Body Mass Index (BMI) 37.8 Finger Stick Blood Glucose 90 General: - - Intubated, sedated, moving the left upper and lower extremities, flaccid on the right side. HEENT: Atraumatic, PERRLA, EOMI, Normocephalic Oral: Moist Mucosa, No Gingival or Mucosal Lesions/ Ulcerations Neck: Supple, No JVD, Negative Carotid Bruits, Trachea Midline, Thyroid Normal Size and Texture Lungs: No wheeze, No rales, Diminished, Rhonchi, - - Decreased breath sounds bilateral, rhonchi. Cardiovascular: Regular rate, Regular Rhythm, Normal S1, Normal S2, PMI Normal Abdomen: Bowel Sounds Present, Soft, Non Tender, Non-Distended, No Hepato-splenomegaly, Obese Extremities: No clubbing, No cyanosis, No edema Skin: No rashes, No breakdown Lymphatic: No Cervical, Supraclavicular, or Inguinal Adenopathy Neurological: - - Patient is intubated, sedated. Unable to assess. He is able to move his left side, flaccid on the right side. Psych/Mental Status: - - Unable to assess. Laboratory Results 09/09/19 09:40: WBC 11.8 H, RBC 3.36 L, Hgb 10.4 L, Hct 32.4 L, MCV 96.4 H, MCH 31.0, MCHC 32.1, RDW Std Deviation 51.8 H, RDW Coeff of Elias 15.1 H, Plt Count 188, MPV 10.8, Immature Gran % (Auto) 0.500, Neut % (Auto) 74.1 H, Lymph % (Auto) 12.8 L, [place] % (Auto) 11.4 H, Eos % (Auto) 0.8, Baso % (Auto) 0.4, Absolute Neuts (auto) 8.7 H, Absolute Lymphs (auto) 1.51, Nucleated RBC % 0 09/09/19 09:40: PT 16.8 H, INR 1.4, APTT 41.0 H 09/09/19 09:40: Sodium 137, Potassium 4.5, Chloride 105, Carbon Dioxide 27.0, Anion Gap 5, BUN 40 H, Creatinine 1.84 H, Estim Creat Clear Calc 33.04, Est GFR (MDRD) Af Amer 46 L, Est GFR (MDRD) Non-Af 38 L, BUN/Creatinine Ratio 21.7 H, Glucose 91, Calcium 8.5, Troponin I 11.300 H* Clinical Impression(s) from Imaging Studies Chest X-Ray 09/09/19 09:34 IMPRESSION: The tip of the endotracheal tube is at 4 cm proximal to the jennifer. Cardiomegaly and mild degree of CHF. Electronically Signed: Aj Alex, at 11:09 EST , Service support , Assessment/Plan All Active Problems (Last Updated 09/09/19 @ 11:33 by Gaurang Ellington MD) Acute respiratory failure (Acute) Acute ischemic left MCA stroke (Acute) This is a 74 years old male patient presented to the emergency room from the [facility] for confusion and trouble speaking after completion of cardiac catheterization, found to have acute left MCA stroke, acute respiratory failure and probable acute elevation DE. #1 acute ischemic left MCA stroke: Started on TPA. CT scan brain as well as CTA of the neck reviewed. Patient does have flaccid paralysis on the right side, able to move his left lower extremity. Tele-neurology consult obtained and recommended TPA. Report is pending. Blood pressure is even on the lower side, bradycardic, on mechanical ventilation. He does have a history of atrial flutter/fibrillation. Plan: Admit to ICU, critical care monitoring, complete bedrest, n.p.o., maintain Andrade catheter, initiate stroke protocol with TPA, close monitoring of blood pressure, goal blood pressure is lower than goal, input output chart, repeat CBC and BMP tomorrow morning. #2 acute respiratory failure: Status post endotracheal intubation and mechanical ventilation, patient was intubated to protect his airway. At this time, he is on fentanyl for sedation, still agitated, blood pressure is borderline. Plan to continue mechanical ventilation, critical care consult. #3 Elevated troponin: Without obvious ST elevation on the EKG. Could be due to non-STEMI secondary to acute stroke. Patient had cardiac catheterization today, findings reviewed as above. Received TPA. Plan: Cardiology consult, cardiac enzymes. #4 CAD status post stents and CABG: Plan as above, status post TPA, serial cardiac enzymes, cardiology consult. #5 paroxysmal atrial flutter/fibrillation: He is in sinus bradycardia, heart rate has been in the high 40s. Blood pressure is borderline. Plan as above. #6 stage III chronic kidney disease: Baseline creatinine has been around 1.4 to 1.7 mg/dL. Admission creatinine is 1.84, close to baseline. Plan for gentle IV fluids for hydration, repeat BMP tomorrow morning. #7 type 2 diabetes mellitus: N.p.o., Accu-Cheks every 6 hours, insulin sliding scale. Hold glimepiride and pioglitazone, will check hemoglobin A1c. #8 hypertension: Blood pressure is borderline at this time. Plan to hold antihypertensive medications. #9 hyperlipidemia: Hold statins, status post TPA. #10 hypothyroidism: Hold levothyroxine for now. #11 CODE STATUS: DNR CCA. I discussed the CODE STATUS with the patient's and son. Patient's stated that the patient does have DNR signed document at home. He does not want to be resuscitated, intubated or on breathing machine. Initially, the son was hesitant and he wanted to keep him full code for now and see how he progresses. The came out of the room with her son and she told me that we need to respect his wishes and she stated that if he coded again meaning in case of cardiac arrest or breath at rest, no CPR, no chest compressions. Patient will be DNR CCA for now on. Time spent discussing CODE STATUS is 17 minutes. #12 DVT prophylaxis: SCDs, status post TPA. This note was generated with [employer] software. It may contain incorrect words, spelling, and punctuation that were not noted in checking the note before signing. Code Visit Inpatient E&M: 69165 Init Hosp L3 Procedures: 58577 Advncd Care Plan 30 Min
--- NOTE | 2019-09-09 12:07 | CON.PCM_ITS ---
Reason for Consult Date of Consultation: 09/09/19 Reason for Consultation: Acute CVA status post TPA/acute respiratory failure History of Present Illness: The patient is a 74-year-old male, with a history as outlined below, who initially presented to the hospital for an elective outpatient cardiac catheterization. The patient was seen in the cardiology clinic on September 06 due to a history of coronary artery disease status post bypass surgery. At that time, the patient was apparently reporting the presence of exertional chest heaviness. Therefore, the patient was referred to undergo cardiac catheterization. In addition to the aforementioned, the patient does have a history of atrial fibrillation. In preparation for his catheterization, the patient Xarelto was placed on hold. On the morning of September 09, the patient did undergo cardiac catheterization, without significant stenoses identified. Post catheterization, the patient was noted to be less responsive. He was also noted to be bradycardic with a 2-1 heart block. A stroke alert was called and the patient was transferred to the emergency department for evaluation. Telemetry stroke consultation was obtained in the emergency department. CTA head and neck was completed. There is documentation of the patient becoming aphasic with a flaccid right side. The patient was deemed appropriate for TPA. During the patient's emergency department stay, he was noted to become less responsive and hypoxemic. Therefore, the decision was made to intubate the patient to secure his airway. The patient does have underlying chronic kidney disease and initial troponin checked in the emergency department was elevated at 11. Postintubation plain film chest x-ray revealed an appropriately placed endotracheal tube with some mild pulmonary vascular congestion. The patient was subsequently transferred to the medical intensive care unit for further management. Past Medical History Past Medical History (Chronic Problems): Chronic Problems (Last Updated 09/09/19 @ 11:33 by Gaurang Ellington MD) Type 2 diabetes mellitus (Chronic) Exertional angina (Chronic) Atherosclerotic heart disease of [place] coronary artery without angina pectoris (Chronic) CABG x 4 MILAN-LAD, SVG-OM1, Sequential Saphenous Vein Y graft from the OM1 venous graft-OM3 and LPDA 11/17/2003. 02/20/1997 J stent of proximal CX. History of coronary artery stent placement (Chronic 02/20/97) 02/20/1997 J stent of proximal main CX H/O coronary artery bypass surgery (Chronic 11/17/03) CABG X 4: MILAN-LAD, SVG-OM1, Sequential Saphenous Vein Y graft from the OM1 venous graft-OM3 and LPDA 11/17/2003. Paroxysmal atrial fibrillation (Chronic) Paroxysmal atrial flutter (Chronic) Essential (primary) hypertension (Chronic) HLD (hyperlipidemia) (Chronic) Medical History: Medical History (Last Updated 09/09/19 @ 11:33 by Gaurang Ellington MD) Atherosclerotic heart disease of [place] coronary artery without angina pectoris (Chronic) I25.10 CABG x 4 MILAN-LAD, SVG-OM1, Sequential Saphenous Vein Y graft from the OM1 venous graft-OM3 and LPDA 11/17/2003. 02/20/1997 J stent of proximal CX. Paroxysmal atrial fibrillation (Chronic) I48.0 Paroxysmal atrial flutter (Chronic) I48.92 Essential (primary) hypertension (Chronic) I10 HLD (hyperlipidemia) (Chronic) E78.5 DM (diabetes mellitus), type 2 with peripheral vascular complications E11.51 Obesity E66.9 Paroxysmal supraventricular tachycardia I47.1 Abnormal electrocardiogram (Inactive) R94.31 Bradycardia (Inactive) R00.1 Dyspnea (Inactive) R06.00 Allergies pollen Allergy (Uncoded 09/06/19 08:01) Sneezing, eyes water Home Medications: Ambulatory Orders Medication Instructions Recorded Aspirin [Aspirin, Baby] 81 mg PO DAILY@0800 09/19/16 Gabapentin [Neurontin] 300 mg PO BID 09/19/16 Saw Galva 80 mg PO BID 09/19/16 docusate sodium 100 mg tablet 100 mg PO BID 09/13/17 nitroglycerin 0.4 mg sublingual 0.4 mg SUBLINGUAL Q5M PRN 09/13/17 tablet atorvastatin 40 mg tablet 40 mg PO QDAY 09/19/17 glimepiride 2 mg tablet 2 mg PO QAM 09/19/17 cholecalciferol (vitamin D3) 25 1,000 unit PO DAILY 04/16/19 mcg (1,000 unit) capsule flaxseed oil 1,000 mg capsule 1,000 mg PO DAILY 04/16/19 mirabegron 25 mg tablet,extended 25 mg PO DAILY #30 tab 04/16/19 release 24 hr levothyroxine 25 mcg tablet 25 mcg PO DAILY tab 09/06/19 pioglitazone 30 mg tablet 30 mg PO DAILY tab 09/06/19 Amlodipine Besylate 5 mg PO BID 09/09/19 Clopidogrel Bisulfate [Clopidogrel] 75 mg PO DAILY 09/09/19 Magnesium Oxide [Mag-Ox 400] 400 mg PO DAILY 09/09/19 Metoprolol Tartrate [Lopressor 50 mg PO BID 09/09/19 (beta antoine)] Potassium Chloride 20 meq PO BID 09/09/19 Ramipril 10 mg PO BID 09/09/19 Rivaroxaban [Xarelto] 20 mg PO DAILY 09/09/19 Surgical History: Surgical History (Last Updated 09/09/19 @ 11:32 by Gaurang Ellington MD) History of coronary artery stent placement (Chronic) Onset Date: 02/20/97 Z95.5 02/20/1997 J stent of proximal main CX H/O coronary artery bypass surgery (Chronic) Onset Date: 11/17/03 Z95.1 CABG X 4: MILAN-LAD, SVG-OM1, Sequential Saphenous Vein Y graft from the OM1 venous graft-OM3 and LPDA 11/17/2003. History of hernia repair Onset Date: 2016 Z98.890, Z87.19 History of left heart catheterization Onset Date: 08/11/09 Z98.890 Surgical History: coronary bypass surgery, herniorrhaphy Psychiatric History: No pertinent psych hx Lives: Spouse/ Significant Other Smoking Status: Former smoker Alcohol: None Drugs: None - *Family History Maternal Family History: Family History (Last Reviewed 09/09/19 @ 11:34 by Gaurang Ellington MD) Father CAD (coronary artery disease) CHF (congestive heart failure) Mother Diabetes Review of Systems Unable to obtain accurate/complete ROS d/t: Due to current intubation and mechanical ventilation status Patient Problems: Active and Suspected Problems (Last Updated 09/09/19 @ 11:33 by Gaurang Ellington MD) Acute respiratory failure (Acute) Acute ischemic left MCA stroke (Acute) Objective: The patient's most recent lab work, culture data and imaging studies have all been personally reviewed. - Physical Exam Vitals/I&O's: Vital Signs Temp Pulse Resp BP Pulse Ox 97.7 F L 44 L 27 H 109/56 L 90 09/09/19 10:18 09/09/19 11:28 09/09/19 11:28 09/09/19 11:28 09/09/19 11:28 Oxygen Flow Rate (L/min) 6 Oxygen Delivery Method Room Air Weight: 248 lb 15.841 oz Body Mass Index (BMI) 37.8 Finger Stick Blood Glucose 90 General: - - Currently intubated, sedated and mechanically ventilated. HEENT: Atraumatic, PERRLA, Normocephalic Oral: No Gingival or Mucosal Lesions/ Ulcerations, - - Endotracheal tube currently in place Neck: Supple, No Nodes, Trachea Midline Lungs: Rhonchi, - - Coarse mechanical breath sounds along anterior lung [place] Cardiovascular: Normal S1, Normal S2, No murmurs, Bradycardic Abdomen: Bowel Sounds Present, Soft, Non Tender, Obese Extremities: No clubbing, No cyanosis, No edema Skin: No breakdown Musculoskeletal: No Muscle Wasting Lymphatic: No Cervical, Supraclavicular, or Inguinal Adenopathy Neurological: - - Unable to assess neurological status due to level of sedation. Labs (Last 48 Hours) 09/09/19 09/09/19 09/09/19 09:40 09:40 09:40 WBC 11.8 H RBC 3.36 L Hgb 10.4 L Hct 32.4 L MCV 96.4 H MCH 31.0 MCHC 32.1 RDW Std Deviation 51.8 H RDW Coeff of Elias 15.1 H Plt Count 188 MPV 10.8 Immature Gran % (Auto) 0.500 Neut % (Auto) 74.1 H Lymph % (Auto) 12.8 L [place] % (Auto) 11.4 H Eos % (Auto) 0.8 Baso % (Auto) 0.4 Absolute Neuts (auto) 8.7 H Absolute Lymphs (auto) 1.51 Nucleated RBC % 0 PT 16.8 H INR 1.4 APTT 41.0 H Sodium 137 Potassium 4.5 Chloride 105 Carbon Dioxide 27.0 Anion Gap 5 BUN 40 H Creatinine 1.84 H Estim Creat Clear Calc 33.04 Est GFR (MDRD) Af Amer 46 L Est GFR (MDRD) Non-Af 38 L BUN/Creatinine Ratio 21.7 H Glucose 91 Calcium 8.5 Troponin I 11.300 H* Clinical Impression(s) from Imaging Studies Chest X-Ray 09/09/19 09:34 IMPRESSION: The tip of the endotracheal tube is at 4 cm proximal to the jennifer. Cardiomegaly and mild degree of CHF. Electronically Signed: Aj Johnson, at 11:09 EST , Service support , Current Medications Glucagon () 1 mg IM .X1 PRN PRN Reason: Hypoglycemia Sodium Chloride () 1,000 mls @ 100 mls/hr IV .Q10H DALE Famotidine 20 mg/ Sodium (Chloride) 10 mls @ 300 mls/hr IV DAILY DALE Dextrose (Dextrose 10%-Water) 250 mls @ 999 mls/hr IV .Q16M PRN; Protocol PRN Reason: HYPOGLYCEMIA Insulin Human Lispro (Humalog Kwikpen (Bkc)) 0 unit SC Q6 DALE; Protocol Ondansetron HCl (Zofran) 4 mg IV Q8H PRN PRN PRN Reason: NAUSEA/VOMITING Assessment/Plan Active and Suspected Problems (Last Updated 09/09/19 @ 11:33 by Gaurang Ellington MD) Acute respiratory failure (Acute) Acute ischemic left MCA stroke (Acute) RECOMMENDATIONS: 1. Treat for systolic blood pressures greater than 180 mmHg. Start as needed labetalol. 2. SCDs for prophylaxis. 3. Trend troponins. 4. Obtain echocardiogram. 5. Repeat head imaging tomorrow with repeat consultation to neurology. 6. Consider tube feed initiation tomorrow pending stability and clinical state. 7. Pepcid for GI prophylaxis. 8. Wean FiO2 and PEEP to maintain oxygen saturations at or above 90%. 9. Start transcutaneous CO2 monitoring. IMPRESSIONS: 1. Acute ischemic CVA status post TPA Continue routine post TPA management. Allow for permissive hypertension and treat if systolic blood pressures greater than 180 mmHg. Plan for repeat imaging tomorrow along with follow-up neurology consultation. 2. Acute respiratory failure The patient was intubated in the emergency department over worsening lethargy and hypoxemia. Given TPA administration, arterial blood gas is unable to be obtained. Therefore, plan to continue FiO2 and PEEP to maintain oxygen saturations at or above 90%. Will place order for transcutaneous CO2 mon itoring. Continue fentanyl for sedation for now. OG tube to be placed. Tube feeds can be initiated tomorrow pending stability and clinical state. 3. History of coronary artery disease/troponin elevation/paroxysmal atrial fibrillation Trend troponins for now. Obtain echocardiogram. Place consultation to cardiology. 4. Chronic kidney disease/diabetes mellitus/hypertension/hyperlipidemia/hypothyroidism/obesity Complicates care, management, recovery and prognosis. Continue to hold home antihypertensives. TIME: 40 minutes of critical care time, independent of procedures, was spent addressing the patient's acute ischemic CVA status post TPA administration, acute respiratory failure, history of coronary artery disease, troponin elevation, heart block, review of all data and collaboration with the care team. ([id number]) Code Visit 9xxxx: [id number] Critical care first hour
--- NOTE | 2019-09-09 12:15 | ECHOD_ITS ---
Reason For Study: Arrhythmia Procedure This was a 2D Doppler, Color Flow transthoracic echocardiogram. Exam performed portable in ICU/CCU. Left Ventricle Normal LV size. Moderate concentric left ventricular hypertrophy. Left ventricular systolic function is normal. The estimated ejection fraction is 60 %. Mild segmental systolic dysfunction (see wall motion). Stage 2 diastolic dysfunction. Infero-Basal: Hypokinetic. Right Ventricle Normal RV size. Normal systolic function. Atria The left atrium is mildly enlarged. The right atrium is mildly enlarged. Mitral Valve There is mild mitral annular calcification. Mild (1+) eccentric mitral valve insufficiency. Tricuspid Valve Normal tricuspid valve. Mild to moderate (1-2+) tricuspid valve insufficiency. Pulmonary artery systolic pressure is 38 mmHg. Aortic Valve Trisinus/trileaflet aortic valve. Mild focal aortic valve calcification. Pulmonic Valve Normal pulmonic valve. Great Vessels Normal aortic root. The pulmonary artery is normal size. Normal inferior vena cava. Pericardium/Pleural No pericardial effusion. MMode/2D Measurements & Calculations LVIDd: 5.3 cm IVSd: 1.8 cm Ao root diam: 3.4 cm LVIDs: 4.0 cm LVPWd: 1.5 cm FS: 25.4 % LAV(MOD-bp): 55.7 ml LA A4 area: 21.3 cm2 LA dimension(2D): 5.4 cm LAV(MOD-bp) Indexed: 25.5 ml/m2 LAV(MOD-sp2): 43.6 ml LAV(MOD-sp4): 61.6 ml RA A4 area: 22.6 cm2 Doppler Measurements & Calculations MV E max yonny: 109.1 cm/sec Lat Peak E' Yonny: 6.8 cm/sec Med Peak E' Yonny: 5.7 cm/sec MV A max yonny: 63.1 cm/sec E/E' lat: 15.9 E/E' med: 19.0 MV E/A: 1.7 Ao V2 max: 112.6 cm/sec LV V1 max: 88.2 cm/sec PA V2 max: 121.3 cm/sec Ao max P.1 mmHg LV V1 max P.1 mmHg Ao V2 mean: 77.1 cm/sec Ao mean P.6 mmHg Ao V2 VTI: 24.6 cm TR max yonny: 294.8 cm/sec TR max P.8 mmHg Interpretation Summary Normal LV size. Left ventricular systolic function is normal. The estimated ejection fraction is 60 %. Moderate concentric left ventricular hypertrophy. Stage 2 diastolic dysfunction. Mild (1+) eccentric mitral valve insufficiency. Ordering Physician: Surinder Shepherd Referring Physician: Omar Jose Chi Performed By: María Mcgowan, FATOUMATA, RVT
[2019-09-09] MEDS: fentaNYL drip 100 ML 10 MCG IV (12:30)
[2019-09-09] MEDS: 0.9% Normal Saline 1,000 ML 100 ML IV ×2 (12:30→23:23)
[2019-09-09 14:04] LABS: ALB/GLOB Ratio 0.7 RATIO (0.9-2.4); AST(SGOT) 56 U/L (15-37); Alanine Aminotransfer ALT/SGPT 27 U/L (16-61); Albumin, Serum 2.4 g/dL (3.2-5.0); Alkaline Phosphatase 64 U/L (45-117); Anion Gap 3 (5-15); BUN 42 mg/dL (7-18); Calcium,Total 8.2 mg/dL (8.5-10.1); Chloride 109 mmol/L (98-107); Cholesterol 87 mg/dL (200); Creatinine, Serum 1.91 mg/dL (0.70-1.30); EST Glomerular Filtration Rate 37 mL/min (>60); Est Glom Filt Rate - Afr Amer 44 mL/min (>60); Estimated Creatinine Clearance 31.83 ml/min; Globulin 3.6 g/dL (2.2-4.2); Glucose 111 mg/dL (74-106); High Density Lipoprotein 37 mg/dL; Potassium 4.7 mmol/L (3.5-5.1); Sodium Level 137 mmol/L (136-145); Triglycerides 89 mg/dL; Very Low Density Lipoprotein 18 mg/dL (5-40)
--- NOTE | 2019-09-09 14:22 | CASEMGMT ---
Social Work SW met with pt to offer support. Pt currently in ICU and intubated. Pt Lucita accepting of visit and openly sharing feelings surrounding sudden illness of pt. Emotional support provided. stating her son is here with her and family from out of state may be coming in. Lucita also stating her jai is important to her to help with coping and that her rastafarian is aware of pt hospitalization. SW will remain available for support. INGE Hammer
[2019-09-09 14:31] LABS: Hemoglobin A1c 6.9 % (4.2-6.3)
--- NOTE | 2019-09-09 14:34 | EKG12_ITS ---
Test Reason : ARRHYTHM Blood Pressure : / mmHG Vent. Rate : 037 BPM Atrial Rate : 071 BPM P-R Int : 000 ms QRS Dur : 092 ms QT Int : 460 ms P-R-T Axes : 040 -23 107 degrees QTc Int : 361 ms Sinus rhythm with A-V dissociation and Junctional bradycardia with Sinus/atrial capture Left ventricular hypertrophy with repolarization abnormality Abnormal ECG No previous ECGs available Confirmed by LAVONNE POLK ([id number]), editor continuity and script GLEN ENRIQUEZ ([id number]) on 09/12/2019 1:35:52 PM Referred By: Gaurang Ellington Confirmed By:LAVONNE POLK
--- NOTE | 2019-09-09 14:42 | CHAPLAIN ---
Type of Pastoral Visit _x__ Initial Visit ___ Follow-up Visit ___ On-call Visit ___ General Patient Visit ___ Spiritual Assessment ___ Family Conference ___ Bereavement ___ Rapid Response ___ Code Blue ___ Other (describe below) Pastoral Care Referral From ___ Patient _x__ Family _x__ Nurse ___ Physician ___ Water Conservationist ___ Site Damage Prevention Technician ___ Other (describe below) Sacrament/Intervention _x__ Active listening ___ Anointing ___ Bahai ___ Bereavement ___ Communion ___ Alda exploration ___ ___ Life review _x__ Prayer ___ Reconciliation ___ Sacrament of Sick _x__ Supportive presence ___ Wedding ___ Other (describe below) Pastoral Comments met with family as soon as patient had been settled into ICU room; son of pt is known to this clinical project leader and offer of support is welcomed; gave presence as family enters room; prayer given; call to the latter day of pt is made as requested; offer of further support to family
--- NOTE | 2019-09-09 15:59 | PN.CARD_ITS ---
Subjectve: Patient seen and evaluated. Please see cath note for events in the Braiding Machine Operator. Objective: Vital Signs Temp Pulse Resp BP Pulse Ox 98.4 F 40 L 16 104/61 91 09/09/19 11:43 09/09/19 15:43 09/09/19 15:43 09/09/19 15:43 09/09/19 15:43 Oxygen Flow Rate (L/min) 6 Oxygen Delivery Method Mechanical Ventilator Weight: 248 lb 14.43 oz Body Mass Index (BMI) 37.7 Finger Stick Blood Glucose 90 Intake and Output for Last 24 Hours 09/07/19 09/08/19 09/09/19 23:59 23:59 23:59 Intake Total 182.78 / 182.78 Balance 182.78 / 182.78 General: Non-Cooperative HEENT: PERRL, EOMI, Sclera Non Icteric Neck: Supple, Good ROM, No Lymph Node Enlargement Lungs: Clear to auscultation Cardiovascular: Regular Rhythm, Normal S1, Normal S2, No Murmurs, No Rubs, No Gallops Vascular: No Carotid Bruits, Normal Femoral Pulses, Normal Radial Pulses, Normal Dorsalis Pedal Pulse, Normal Posterior Tibial Pulses Abdomen: Bowel Sounds Present, Soft, Non Tender, No HSM, No Organomegaly Extremities: No Cyanosis, No Clubbing, No edema Neurological: - - Evidence of flaccidity involving the right upper and lower extremities and reduced tendon reflexes Psych/Mental Status: Inappropriate 09/09/19 09:40: WBC 11.8 H, RBC 3.36 L, Hgb 10.4 L, Hct 32.4 L, MCV 96.4 H, MCH 31.0, MCHC 32.1, Plt Count 188, MPV 10.8, Immature Gran % (Auto) 0.500, Neut % (Auto) 74.1 H, Lymph % (Auto) 12.8 L, [place] % (Auto) 11.4 H, Eos % (Auto) 0.8, Baso % (Auto) 0.4, Absolute Neuts (auto) 8.7 H, Nucleated RBC % 0 09/09/19 09:40: PT 16.8 H, INR 1.4, APTT 41.0 H 09/09/19 09:40: Sodium 137, Potassium 4.5, Chloride 105, Carbon Dioxide 27.0, Anion Gap 5, BUN 40 H, Creatinine 1.84 H, Est GFR (MDRD) Af Amer 46 L, Est GFR (MDRD) Non-Af 38 L, BUN/Creatinine Ratio 21.7 H, Glucose 91, Calcium 8.5, Troponin I 11.300 H* 09/09/19 09:40: Hemoglobin A1c 6.9 H 09/09/19 13:33: Sodium 137, Potassium 4.7, Chloride 109 H, Carbon Dioxide 25.0, Anion Gap 3 L, BUN 42 H, Creatinine 1.91 H, Est GFR (MDRD) Af Amer 44 L, Est GFR (MDRD) Non-Af 37 L, BUN/Creatinine Ratio 22.0 H, Glucose 111 H, Calcium 8.2 L, Total Bilirubin 0.70, Troponin I 10.600 H*, Triglycerides 89, Cholesterol 87, LDL Cholesterol 32, VLDL Cholesterol 18, HDL Cholesterol 37 L Rhythm: EKG: ECHO: Stress Test: Cardiac Cath: PCI: CT Surgery: Holter monitor: EPS: PPM: CXR: Chest CT Scan: Medical Necessity - Tobacco Use Smoking Status: Former smoker Assessment/Plan 1. Coronary artery disease * Patient is status post remote coronary artery bypass surgery. Patient underwent cardiac catheterization today which demonstrated patency of the left internal mammary artery to the left anterior descending artery and patent saphenous vein graft to obtuse marginal vessel. The Y graft as a saphenous vein graft to the left posterior descending artery and the other obtuse marginal branch was noted to be occluded. There was also moderately severe disease noted of the circumflex artery as well as a nondominant right coronary artery with a high-grade ostial stenosis. * Based on the above angiographic findings the plan was to continue to treat the patient with medication. * 2. Cerebrovascular accident * Patient sustained a cerebrovascular accident in the perioperative period following the cardiac catheterization. It is unclear whether the above was due to plaque dislodgment or from the cessation of the factor X inhibitor a few days prior to the above procedure. Initial CT scan did not demonstrate any evidence of bleed or acute infarct. However due to the timing as well as the clinical presentation, on consultation with the neurologist TPA was initiated. A FemoStop was placed in the groin to prevent any bleeding. * Patient admitted to the ICU and would follow-up following stroke protocol. * 3. Cardiac dysrhythmias * Patient has a history of paroxysmal atrial fibrillation and had been maintaining sinus rhythm. Patient however noted post CVA to have gone into initial 2-1 AV block and now A-V dissociation. * We will hold off on beta-antoine for now * At this time patient is maintaining blood pressure and hemodynamically stable and there is no reason for urgent pacemaker placement. * 4. Hypertension * Good control we will continue to monitor patient's blood pressure to allow passive hypertension. * 5, risk factor modification * Patient will continue with aggressive risk factor modification. * * Overall the patient's prognosis is guarded at this particular time. I had an extensive discussion explaining the above to the patient's as well as their son. All questions answered to the best of my ability and they expressed understanding.
--- NOTE | 2019-09-09 16:28 | NURSING ---
Pt arrived to unit, [facility] completed with RERE Comer RN. VS not immediately obtained d/t pt transfer and evaluation.
[2019-09-09 17:55] LABS: Bedside Glucose 79 mg/dL (70-110)
[2019-09-09] MEDS: Dextrose 10%-Water 250 ML 999 ML IV (18:11)
[2019-09-09] MEDS: fentaNYL drip 100 ML 12.5 MCG IV (19:59)
[2019-09-09 23:30] LABS: Bedside Glucose 70 mg/dL (70-110)
--- NOTE | 2019-09-09 23:51 | NURSING ---
pt now more arousable, following very basic commands. NIHSS assessment reflects this.
[2019-09-10] VITALS (43 sets, daily range): BP systolic 94–137; BP diastolic 47–93; PULSE 39–98; RESP 15–24; TEMP 37.2–38.9; O2SAT 94–100
[2019-09-10 04:19] LABS: Absolute Lymphocyte Count 1.91 X10^3/uL (0.83-4.51); Absolute Neutrophil Count 9.1 X10^3/uL (2.0-7.7); Basophil# 0.04 X10^3/uL; Basophil% 0.3 % (0-1); Eosinophil# 0.11 X10^3/uL; Eosinophils% 0.9 % (0-5); Hematocrit 30.1 % (40-54); Hemoglobin 9.4 g/dL (13.0-16.5); Lymphocyte # 1.91 X10^3/ul (4.0); Mean Corp Hgb Conc 31.2 g/dL (32-36); Mean Corpuscular Hgb 30.4 pg (27.0-32.0); Mean Corpuscular Volume 97.4 fL (80-94); Monocyte# 1.54 X10^3/uL; Monocyte% 12.1 % (0-10); NRBC Flagged by Analyzer 0.2 % (0-5); Neutrophil % 71.2 % (47-70); POSITIVE DIFFERENTIAL YES; Platelet Count 176 K/mm3 (150-450); RBC Distribution Width CV 15.9 % (11.6-14.6); RBC Distribution Width SD 56.3 fl (35.1-43.9); Red Blood Count 3.09 M/mm3 (4.6-6.2); White Blood Count 12.8 K/mm3 (4.4-11.0)
[2019-09-10 04:37] LABS: Prothrombin Time (Protime)PT. 17.3 SECONDS (11.7-14.9)
[2019-09-10 04:38] LABS: International Normalized Ratio 1.4
[2019-09-10 04:55] LABS: Differential Indicated SCAN CRITERIA MET
[2019-09-10 04:58] LABS: ALB/GLOB Ratio 0.7 RATIO (0.9-2.4); AST(SGOT) 41 U/L (15-37); Alanine Aminotransfer ALT/SGPT 24 U/L (16-61); Albumin, Serum 2.5 g/dL (3.2-5.0); Alkaline Phosphatase 62 U/L (45-117); Anion Gap 5 (5-15); BUN 51 mg/dL (7-18); BUN/Creat Ratio 16.6 RATIO (10-20); Calcium,Total 8.1 mg/dL (8.5-10.1); Chloride 109 mmol/L (98-107); Creatinine, Serum 3.07 mg/dL (0.70-1.30); EST Glomerular Filtration Rate 21 mL/min (>60); Est Glom Filt Rate - Afr Amer 26 mL/min (>60); Globulin 3.6 g/dL (2.2-4.2); Glucose 71 mg/dL (74-106); Potassium 5.1 mmol/L (3.5-5.1); Protein, Total 6.1 g/dL (6.4-8.2); Reactive Lymphocyte 1+; Sodium Level 138 mmol/L (136-145)
[2019-09-10 05:14] LABS: M R Staph aureus DNA By PCR Negative (Negative); Probe Check PASS; Specimen Processing Control PASS
--- NOTE | 2019-09-10 05:55 | EKG12_ITS ---
Test Reason : AM Blood Pressure : / mmHG Vent. Rate : 050 BPM Atrial Rate : 078 BPM P-R Int : 280 ms QRS Dur : 096 ms QT Int : 472 ms P-R-T Axes : 032 -19 089 degrees QTc Int : 430 ms Sinus rhythm with 2nd degree A-V block ([place] II) Left ventricular hypertrophy with repolarization abnormality Consider right ventricular involvement in acute inferior infarct Abnormal ECG When compared with ECG of 09-SEP-2019 11:06, MANUAL COMPARISON REQUIRED, DATA IS UNCONFIRMED Confirmed by LAVONNE POLK ([id number]), editor house organ RACHAEL DAUGHERTY ([id number]) on 09/12/2019 8:55:02 AM Referred By: Gaurang Ellington Confirmed By:LAVONNE POLK
--- NOTE | 2019-09-10 06:47 | PCM.PN.INT ---
Subjective: The patient was seen and examined at the bedside this morning. Events from the last 24 hours have been reviewed. The patient is currently febrile with a T-max overnight of 102 ?F. Given the patient's fevers, cultures were obtained and empiric antimicrobials were started. Although the patient's hemodynamics have been rather tenuous, he never required initiation of vasopressor support. The patient remains bradycardic with variable degree heart block. FiO2 requirement remains elevated at 70%. Transcutaneous CO2 monitoring reveals a level in the 35-40 range. The patient is due for follow-up head imaging this morning. The patient remains on minimally sedated on a continuous fentanyl infusion. He will follow some simple commands but continues to have a flaccid right side. Objective: The patient's most recent lab work, culture data and imaging studies have all been personally reviewed. Surface echocardiogram revealed moderate concentric LVH with an ejection fraction of 60% and stage II diastolic dysfunction. Pulmonary artery systolic pressure was estimated to be 38 mmHg. Blood and urine cultures are currently pending. General: - - Remains intubated, mechanically ventilated and minimally sedated. No ventilator dyssynchrony noted. HEENT: Atraumatic, PERRLA, Normocephalic Oral: No Gingival or Mucosal Lesions/ Ulcerations, - - Endotracheal tube remains in place Neck: Supple, No Nodes, Trachea Midline Lungs: - - Coarse mechanical breath sounds persist Cardiovascular: Normal S1, Normal S2, Bradycardic, Irregular Rate Abdomen: Bowel Sounds Present, Soft, Non Tender, Obese Extremities: No clubbing, No cyanosis, No edema Skin: No breakdown Musculoskeletal: No Tenderness to Palpation of Joints or Extremities Lymphatic: No Cervical, Supraclavicular, or Inguinal Adenopathy Neurological: - - Will follow some simple commands. Appears to have flaccid paralysis of right side. Vital Signs Temp Pulse Resp BP Pulse Ox 100.3 F H 48 L 18 101/60 97 09/10/19 06:30 09/10/19 06:30 09/10/19 06:30 09/10/19 06:30 09/10/19 06:30 Oxygen Flow Rate (L/min) 6 Oxygen Delivery Method Mechanical Ventilator Weight: 259 lb 4.218 oz Body Mass Index (BMI) 37.7 Finger Stick Blood Glucose 90 Intake and Output for Last 24 Hours 09/08/19 09/09/19 09/10/19 23:59 23:59 23:59 Intake Total 1427.88 / 1436.00 103.12 / 103.12 Output Total 750 / 900 200 / 200 Balance 677.88 / 536.00 -96.88 / -96.88 Labs (Last 48 Hours) 09/09/19 09/09/19 09/09/19 09:40 09:40 09:40 WBC 11.8 H RBC 3.36 L Hgb 10.4 L Hct 32.4 L MCV 96.4 H MCH 31.0 MCHC 32.1 RDW Std Deviation 51.8 H RDW Coeff of Elias 15.1 H Plt Count 188 MPV 10.8 Immature Gran % (Auto) 0.500 Neut % (Auto) 74.1 H Lymph % (Auto) 12.8 L Wilkes % (Auto) 11.4 H Eos % (Auto) 0.8 Baso % (Auto) 0.4 Absolute Neuts (auto) 8.7 H Absolute Lymphs (auto) 1.51 Nucleated RBC % 0 Differential Comment Diff Path Review Reactive Lymphocytes PT 16.8 H INR 1.4 APTT 41.0 H Sodium 137 Potassium 4.5 Chloride 105 Carbon Dioxide 27.0 Anion Gap 5 BUN 40 H Creatinine 1.84 H Estim Creat Clear Calc 33.04 Est GFR (MDRD) Af Amer 46 L Est GFR (MDRD) Non-Af 38 L BUN/Creatinine Ratio 21.7 H Glucose 91 Hemoglobin A1c Calcium 8.5 Total Bilirubin AST ALT Alkaline Phosphatase Troponin I 11.300 H* Total Protein Albumin Globulin Albumin/Globulin Ratio Triglycerides Cholesterol LDL Cholesterol VLDL Cholesterol HDL Cholesterol MRSA (PCR) POC Glucose 09/09/19 09/09/19 09/09/19 09:40 13:33 17:49 WBC RBC Hgb Hct MCV MCH MCHC RDW Std Deviation RDW Coeff of Elias Plt Count MPV Immature Gran % (Auto) Neut % (Auto) Lymph % (Auto) Wilkes % (Auto) Eos % (Auto) Baso % (Auto) Absolute Neuts (auto) Absolute Lymphs (auto) Nucleated RBC % Differential Comment Diff Path Review Reactive Lymphocytes PT INR APTT Sodium 137 Potassium 4.7 Chloride 109 H Carbon Dioxide 25.0 Anion Gap 3 L BUN 42 H Creatinine 1.91 H Estim Creat Clear Calc 31.83 Est GFR (MDRD) Af Amer 44 L Est GFR (MDRD) Non-Af 37 L BUN/Creatinine Ratio 22.0 H Glucose 111 H Hemoglobin A1c 6.9 H Calcium 8.2 L Total Bilirubin 0.70 AST 56 H ALT 27 Alkaline Phosphatase 64 Troponin I 10.600 H* Total Protein 6.0 L Albumin 2.4 L Globulin 3.6 Albumin/Globulin Ratio 0.7 L Triglycerides 89 Cholesterol 87 LDL Cholesterol 32 VLDL Cholesterol 18 HDL Cholesterol 37 L MRSA (PCR) POC Glucose 79 09/09/19 09/10/19 09/10/19 23:20 01:05 04:10 WBC 12.8 H RBC 3.09 L Hgb 9.4 L Hct 30.1 L MCV 97.4 H MCH 30.4 MCHC 31.2 L RDW Std Deviation 56.3 H RDW Coeff of Elias 15.9 H Plt Count 176 MPV 11.0 Immature Gran % (Auto) 0.500 Neut % (Auto) 71.2 H Lymph % (Auto) 15.0 L Wilkes % (Auto) 12.1 H Eos % (Auto) 0.9 Baso % (Auto) 0.3 Absolute Neuts (auto) 9.1 H Absolute Lymphs (auto) 1.91 Nucleated RBC % 0.2 Differential Comment Diff Path Review May foll Reactive Lymphocytes 1+ PT INR APTT Sodium Potassium Chloride Carbon Dioxide Anion Gap BUN Creatinine Estim Creat Clear Calc Est GFR (MDRD) Af Amer Est GFR (MDRD) Non-Af BUN/Creatinine Ratio Glucose Hemoglobin A1c Calcium Total Bilirubin AST ALT Alkaline Phosphatase Troponin I Total Protein Albumin Globulin Albumin/Globulin Ratio Triglycerides Cholesterol LDL Cholesterol VLDL Cholesterol HDL Cholesterol MRSA (PCR) Negative POC Glucose 70 09/10/19 09/10/19 04:10 04:10 WBC RBC Hgb Hct MCV MCH MCHC RDW Std Deviation RDW Coeff of Elias Plt Count MPV Immature Gran % (Auto) Neut % (Auto) Lymph % (Auto) Wilkes % (Auto) Eos % (Auto) Baso % (Auto) Absolute Neuts (auto) Absolute Lymphs (auto) Nucleated RBC % Differential Comment Diff Path Review Reactive Lymphocytes PT 17.3 H INR 1.4 APTT Sodium 138 Potassium 5.1 Chloride 109 H Carbon Dioxide 24.0 Anion Gap 5 BUN 51 H Creatinine 3.07 H Estim Creat Clear Calc 19.80 Est GFR (MDRD) Af Amer 26 L Est GFR (MDRD) Non-Af 21 L BUN/Creatinine Ratio 16.6 Glucose 71 L Hemoglobin A1c Calcium 8.1 L Total Bilirubin 0.80 AST 41 H ALT 24 Alkaline Phosphatase 62 Troponin I Total Protein 6.1 L Albumin 2.5 L Globulin 3.6 Albumin/Globulin Ratio 0.7 L Triglycerides Cholesterol LDL Cholesterol VLDL Cholesterol HDL Cholesterol MRSA (PCR) POC Glucose Clinical Impression(s) from Imaging Studies Chest X-Ray 09/09/19 09:34 IMPRESSION: The tip of the endotracheal tube is at 4 cm proximal to the jennifer. Cardiomegaly and mild degree of CHF. Electronically Signed: Aj Johnson, at 11:09 EST , Service support , Medical Necessity - Tobacco Use Smoking Status: Former smoker Assessment/Plan All Active Problems (Last Updated 09/09/19 @ 11:33 by Gaurang Ellington MD) History of non-ST elevation myocardial infarction (NSTEMI) (Acute 09/09/19) Acute respiratory failure (Acute) Acute ischemic left MCA stroke (Acute) RECOMMENDATIONS: 1. Obtain MRI head today. 2. Repeat consultation to neurology. 3. Allow for permissive hypertension and treat for systolic blood pressures in excess of 180 mmHg. 4. PT/OT evaluations 24 hours post TPA administration. 5. Continue supplemental IV fluids until tube feeds can be started. Change from normal saline to lactated Ringer's. 6. Obtain repeat plain film chest x-ray, given fevers. 7. Continue empiric antimicrobials, pending infectious work-up. 8. Obtain renal ultrasound. 9. Continue appropriate GI prophylaxis IMPRESSIONS: 1. Acute ischemic CVA status post TPA The patient presented post heart catheterization with symptoms concerning for left MCA syndrome. The patient did receive TPA administration and is currently scheduled for follow-up MRI later this morning. Upon completion of head imaging, repeat consultation to neurology will be obtained. The patient will require PT/OT evaluations, which can be considered 24 hours after TPA administration. Allow for permissive hypertension and treat if systolic blood pressures greater than 180 mmHg. Echocardiogram was completed and largely unremarkable. 2. Acute respiratory failure The patient was intubated in the emergency department over worsening lethargy and hypoxemia. Given TPA administration, arterial blood gas is unable to be obtained. Therefore, transcutaneous CO2 monitoring has been implemented. The patient is still requiring a high degree of FiO2. In addition, the patient did spike fevers overnight. Accordingly, a repeat plain film chest x-ray will be obtained. Recommend continuing fentanyl for sedation. OG tube can be placed later today with plans to initiate tube feeds. Until that time, supplemental IV fluids will be continued. 3. Acute kidney injury Potentially related to ATN in the setting of tenuous hemodynamics. In addition, the patient did receive contrast yesterday for both a CTA and cardiac catheterization, making contrast nephropathy a possibility. Continue supplemental IV fluids as ordered. Monitor urine output. Avoid nephrotoxic medications. Obtain renal ultrasound today. No current indication for renal replacement therapy, will continue to monitor. 4. History of coronary artery disease/troponin elevation/paroxysmal atrial fibrillation/heart block Repeat echocardiogram was unremarkable. Cardiology is currently following to assist with management. 5. Chronic kidney disease/diabetes mellitus/hypertension/hyperlipidemia/hypothyroidism/obesity Complicates care, management, recovery and prognosis. Continue to hold home antihypertensives. TIME: 40 minutes of critical care time, independent of procedures, was spent addressing the patient's acute ischemic CVA status post TPA administration, acute respiratory failure, history of coronary artery disease, troponin elevation, heart block, acute kidney injury, review of all data and collaboration with the care team. ([id number]) Code Visit 9xxxx: [id number] Critical care first hour
--- NOTE | 2019-09-10 06:48 | US_ITS ---
STUDY: RENAL ULTRASOUND - COMPLETE REASON FOR EXAM: Male, 74 years old. Elevated BUN/creatinine TECHNIQUE: Ultrasound evaluation of the kidneys was performed with real-time and static post-scale imaging. COMPARISON: 11/14/2016 FINDINGS: RIGHT KIDNEY: Normal location of the right kidney, which is normal in size. The right kidney measures 13.3 x 5.9 x 5.5 cm. There is a normal cortex of the right kidney. The renal cortex measures 1.2 cm. There is a simple 2.5 cm cyst. There are no right renal calculi. There is no right hydronephrosis. DISTAL RIGHT URETER: There is non-visualization of the distal right ureter. There is no demonstrated right ureterovesical junction calculus. There is a visualized right ureteral jet. LEFT KIDNEY: Normal location of the left kidney, which is normal in size. The left kidney measures 11.6 x 5.2 x 5.5 cm. There is a normal cortex of the left kidney. The renal cortex measures 1.5 cm. There is a simple 2.8 cm cyst. There are no left renal calculi. There is no left hydronephrosis. DISTAL LEFT URETER: There is non-visualization of the distal left ureter. There is no demonstrated left ureterovesical junction calculus. There is a visualized left ureteral jet. AORTA: There is no elongation or tortuosity of the abdominal aorta. I.V.C.: The IVC is patent. BLADDER: The bladder is sonographically normal US/Kidney and Bladder IMPRESSION: No suspicious sonographic findings, bilateral renal cysts Electronically Signed: Chris Arias MD at 14:52 EST , Service support ,
--- NOTE | 2019-09-10 06:52 | MRI_ITS ---
STUDY: MRI BRAIN WITHOUT CONTRAST REASON FOR EXAM: Male, 74 years old. Post TPA -- Confusion, RIGHT weakness, Lt. MCA stroke TECHNIQUE: Standardized multiplanar fat and water weighted pulse sequences were obtained. COMPARISON: CT head 09/09/2019. FINDINGS: There is a large region of restricted diffusion and corresponding FLAIR hyperintensity in the lateral left parietal lobe, MCA vascular territory, in keeping with acute infarct. Normal size of the ventricles and extra-axial spaces for the patient''s age. There are a limited number of small white matter hyperintensities, distributed throughout the deep white matter tracts of the cerebral hemispheres, consistent with mild chronic white matter ischemic changes. Normal T2* images of the brain without demonstrated susceptibility artifact. There is no demonstrated hemosiderin stain. Normal bilateral basal ganglia. Normal thalami. There is no extra-axial fluid accumulation. Normal flow voids within the major intracranial circulation suggesting patency by spin echo criteria. Normal sella turcica, pituitary gland, infundibular stalk, optic chiasm and hypothalamus. Normal tectal plate and pineal gland. Normal midbrain, fabian and medulla. Normal cerebellum. Normal basal cisterns. Normal bilateral temporal bones. Normal bilateral internal auditory canals. No demonstrated orbital abnormality, within the constraints of a routine brain study. There is left maxillary sinus retention cysts. Normal calvarium and skull base. Normal visualized soft tissue structures. Normal visualized upper cervical spine. MRI/Brain without Contrast IMPRESSION: Large acute infarct in the left lateral parietal lobe, MCA vascular territory. No hemorrhage. N.B. : The above information has been verbally conveyed by Reggie James to Dr. Joao DO, on 09/10/2019 13:49:11 (ET). Electronically Signed: Reggie James, at 13:50 EST Tel , Service support ,
[2019-09-10 06:55] LABS: Bedside Glucose 75 mg/dL (70-110)
--- NOTE | 2019-09-10 07:15 | RAD_ITS ---
STUDY: X-RAY CHEST REASON FOR EXAM: Male, 74 years old. RESPIRATORY FAILURE, FEVERS, ACUTE CVA HX TECHNIQUE: Single AP portable view of the chest. COMPARISON: Comparison is made with prior study dated September 09, 2019. FINDINGS: An endotracheal tube is in situ. The tip is at 3.9 sinus proximal to the jennifer. Persistent left lower lobe infiltrate and/or atelectasis. Since prior study, there has been improvement in the CHF. Persistent blunting of both costophrenic angles. Sternal cerclage wires and vascular clips are present from a prior sternotomy and coronary artery bypass graft procedure (CABG). Normal mediastinum and patricia. Normal visualized pulmonary arteries. There is atherosclerotic calcification of the aortic arch with tortuosity. There are diffuse degenerative changes of the visualized thoracic spine. Normal visualized ribs, clavicles, and shoulders. There is no demonstrated abnormality of the visualized soft tissue structures of the upper abdomen. RAD/Chest 1 View (Portable) IMPRESSION: The CHF as improved. Residual atelectasis and/or infiltrate at the left lung base. Electronically Signed: jA Johnson, at 11:16 EST , Service support ,
--- NOTE | 2019-09-10 08:35 | PN_ITS ---
Patient Problems: Active and Suspected Problems (Last Updated 09/09/19 @ 11:33 by Gaurang Ellington MD) Acute respiratory failure (Acute) Acute ischemic left MCA stroke (Acute) Subjective: Chief complaint: Follow-up after admission for acute ischemic left MCA stroke with resultant right side hemiplegia, acute respiratory failure, probable non-ST relation MD and he developed DAGOBERTO on stage III chronic kidney disease. Patient seen and examined. This morning, he is conscious, awake, alert, eyes are forcibly deviated to the left side. He is on fentanyl infusion for sedation. He follows simple commands, was able to squeeze his left hand. He developed fever this morning of up to 102 Fahrenheit. Remained bradycardic, heart rate has been in the high 40s to 50s, blood pressure is borderline. No vasopressors required. Remained on mechanical ventilation. - Physical Exam Vitals/I&O's: Vital Signs Temp Pulse Resp BP Pulse Ox 100.3 F H 48 L 18 101/60 97 09/10/19 06:30 09/10/19 06:30 09/10/19 06:30 09/10/19 06:30 09/10/19 06:30 Oxygen Flow Rate (L/min) 6 Oxygen Delivery Method Mechanical Ventilator Weight: 259 lb 4.218 oz Body Mass Index (BMI) 37.7 Finger Stick Blood Glucose 90 Intake and Output for Last 24 Hours 09/08/19 09/09/19 09/10/19 23:59 23:59 23:59 Intake Total 1427.88 / 1436.00 103.12 / 103.12 Output Total 750 / 900 200 / 200 Balance 677.88 / 536.00 -96.88 / -96.88 General: Alert, Cooperative, - - Intubated, on sedation. HEENT: Atraumatic, PERRLA, EOMI, Normocephalic, - - Forced deviation of eyes to the left side. Oral: Moist Mucosa, No Gingival or Mucosal Lesions/ Ulcerations Neck: Supple, No JVD, Negative Carotid Bruits, Trachea Midline, Thyroid Normal Size and Texture Lungs: Clear to auscultation, Normal air movement, No rhonchi, No wheeze, No rales, Diminished Cardiovascular: Regular rate, Regular Rhythm, Normal S1, Normal S2, PMI Normal, Bradycardic Abdomen: Bowel Sounds Present, Soft, Non Tender, Non-Distended, No Hepato- splenomegaly, Obese Extremities: No clubbing, No cyanosis, No edema Skin: No rashes, No breakdown Lymphatic: No Cervical, Supraclavicular, or Inguinal Adenopathy Neurological: - - Flaccid right-sided plegia. Forced deviation of both eyes to the left side. Psych/Mental Status: - - Unable to assess although patient was alert, on s edation. Laboratory Results 09/09/19 09:40: WBC 11.8 H, RBC 3.36 L, Hgb 10.4 L, Hct 32.4 L, MCV 96.4 H, MCH 31.0, MCHC 32.1, RDW Std Deviation 51.8 H, RDW Coeff of Elias 15.1 H, Plt Count 188, MPV 10.8, Immature Gran % (Auto) 0.500, Neut % (Auto) 74.1 H, Lymph % (Auto) 12.8 L, Patrick % (Auto) 11.4 H, Eos % (Auto) 0.8, Baso % (Auto) 0.4, Absolute Neuts (auto) 8.7 H, Absolute Lymphs (auto) 1.51, Nucleated RBC % 0 09/09/19 09:40: PT 16.8 H, INR 1.4, APTT 41.0 H 09/09/19 09:40: Sodium 137, Potassium 4.5, Chloride 105, Carbon Dioxide 27.0, Anion Gap 5, BUN 40 H, Creatinine 1.84 H, Estim Creat Clear Calc 33.04, Est GFR (MDRD) Af Amer 46 L, Est GFR (MDRD) Non-Af 38 L, BUN/Creatinine Ratio 21.7 H, Glucose 91, Calcium 8.5, Troponin I 11.300 H* 09/09/19 09:40: Hemoglobin A1c 6.9 H 09/09/19 13:33: Sodium 137, Potassium 4.7, Chloride 109 H, Carbon Dioxide 25.0, Anion Gap 3 L, BUN 42 H, Creatinine 1.91 H, Estim Creat Clear Calc 31.83, Est GFR (MDRD) Af Amer 44 L, Est GFR (MDRD) Non-Af 37 L, BUN/Creatinine Ratio 22.0 H , Glucose 111 H, Calcium 8.2 L, Total Bilirubin 0.70, AST 56 H, ALT 27, Alkaline Phosphatase 64, Troponin I 10.600 H*, Total Protein 6.0 L, Albumin 2.4 L, Globulin 3.6, Albumin/Globulin Ratio 0.7 L, Triglycerides 89, Cholesterol 87, LDL Cholesterol 32, VLDL Cholesterol 18, HDL Cholesterol 37 L 09/09/19 17:49: POC Glucose 79 09/09/19 23:20: POC Glucose 70 09/10/19 01:05: MRSA (PCR) Negative 09/10/19 04:10: WBC 12.8 H, RBC 3.09 L, Hgb 9.4 L, Hct 30.1 L, MCV 97.4 H, MCH 30.4, MCHC 31.2 L, RDW Std Deviation 56.3 H, RDW Coeff of Elias 15.9 H, Plt Count 176, MPV 11.0, Immature Gran % (Auto) 0.500, Neut % (Auto) 71.2 H, Lymph % (Auto) 15.0 L, Patrick % (Auto) 12.1 H, Eos % (Auto) 0.9, Baso % (Auto) 0.3, Absolute Neuts (auto) 9.1 H, Absolute Lymphs (auto) 1.91, Nucleated RBC % 0.2, Differential Comment , Diff Path Review December, Reactive Lymphocytes 1+ 09/10/19 04:10: PT 17.3 H, INR 1.4 09/10/19 04:10: Sodium 138, Potassium 5.1, Chloride 109 H, Carbon Dioxide 24.0, Anion Gap 5, BUN 51 H, Creatinine 3.07 H, Estim Creat Clear Calc 19.80, Est GFR (MDRD) Af Amer 26 L, Est GFR (MDRD) Non-Af 21 L, BUN/Creatinine Ratio 16.6, Glucose 71 L, Calcium 8.1 L, Total Bilirubin 0.80, AST 41 H, ALT 24, Alkaline Phosphatase 62, Total Protein 6.1 L, Albumin 2.5 L, Globulin 3.6, Albumin/Globulin Ratio 0.7 L 09/10/19 06:41: POC Glucose 75 Clinical Impression(s) from Imaging Studies Chest X-Ray 09/09/19 09:34 IMPRESSION: The tip of the endotracheal tube is at 4 cm proximal to the jennifer. Cardiomegaly and mild degree of CHF. Electronically Signed: Aj Johnson, at 11:09 EST , Service support , Current Medications Acetaminophen (Tylenol) 650 mg RECTAL Q6H PRN PRN PRN Reason: Temp > 100.7 Glucagon () 1 mg IM .X1 PRN PRN Reason: Hypoglycemia Famotidine 20 mg/ Sodium (Chloride) 10 mls @ 300 mls/hr IV DAILY DALE Dextrose (Dextrose 10%-Water) 250 mls @ 999 mls/hr IV .Q16M PRN; Protocol PRN Reason: HYPOGLYCEMIA Last Infusion: 09/09/19 18:19 Dose: Infused Documented by: Fentanyl () 100 mls @ 5 mls/hr IV UD DALE; Protocol Last Titration: 09/10/19 06:00 Dose: 75 mcg/hr, 7.5 mls/hr Documented by: Piperacillin Sod/Tazobactam (Sod 3.375 gm/ Sodium Chloride) 50 mls @ 12.5 mls/hr IV Q8 DALE Last Admin: 09/10/19 06:43 Dose: 12.5 mls/hr Documented by: Lactated Ringer's () 1,000 mls @ 125 mls/hr IV .Q8H DALE Insulin Human Lispro (Humalog Kwikpen (Bkc)) 0 unit SC Q6 DALE; Protocol Last Admin: 09/10/19 06:43 Dose: Not Given Documented by: Ondansetron HCl (Zofran) 4 mg IV Q8H PRN PRN PRN Reason: NAUSEA/VOMITING Sodium Chloride () 10 - 40 ml IV UD PRN PRN Reason: SALINE FLUSH Medical Necessity - Tobacco Use Smoking Status: Former smoker Assessment/Plan All Active Problems (Last Updated 09/09/19 @ 11:33 by Gaurang Ellington MD) Acute respiratory failure (Acute) Acute ischemic left MCA stroke (Acute) This is a 74 years old male patient presented to the emergency room from the [facility] for confusion and trouble speaking after completion of cardiac catheterization, found to have acute left MCA stroke, acute respiratory failure and probable acute elevation MD. #1 acute ischemic left MCA stroke: With resultant right side flaccid hemiplegia. Status post TPA. CTA of the head and neck revealed attenuation of the branches of the left MCA, calcific plaques at the origin of the right and left carotid arteries with less than 50% stenosis. Patient remained bradycardic, blood press ure is borderline, remained on mechanical ventilation. He developed fever, started on empiric IV antibiotics. 2D echocardiogram revealed ejection fraction of 60%, normal LV size and function, stage II diastolic dysfunction. Plan: Continue same treatment, MRI brain today, repeat tele-neurology consult. #2 acute respiratory failure: Remains on mechanical ventilation, on IV fentanyl drip for sedation. Patient was intubated before airway protection. Repeat chest x-ray from today revealed cardiomegaly and obliteration of the left costophrenic angle, no acute findings. Official report is pending. Plan to continue same treatment. #3 Elevated troponin/probable non-ST relation MD: No evidence of acute ST depression on EKG. Troponin is trending down. Patient underwent cardiac catheterization today, findings reviewed. Status post TPA. Cardiology on the case. #4 acute kidney injury on top of stage III chronic kidney disease: Baseline creatinine has been around 1.4 to 1.7 mg/dL. Yesterday, creatinine was 1.91 and today, it came up to 3.07 mg/dL. It is probably due to ATN secondary to hypotension. Blood pressure today slightly improved but still borderline. Patient is on IV fluids, renal ultrasound ordered. Plan to continue IV fluids, repeat BMP tomorrow morning. #5 CAD status post stents and CABG: Plan as above, status post TPA, cardiology on the case.. #6 paroxysmal atrial flutter/fibrillation: Patient remained bradycardic. He is not on any beta-blockers or any rate controlling medicine. Status post TPA. #7 type 2 diabetes mellitus: Blood sugar has been stable, he is on Ringer's lactate IV fluids. Sugar has been stable. Plan to continue sliding scale. Hemoglobin A1c was 6.9. #8 hypertension: Blood pressure is borderline at this time. He is not on any a ntihypertensive medications. #9 hyperlipidemia: Statins on hold.. #10 hypothyroidism: Levothyroxine on hold. #11 CODE STATUS: DNR CCA. I discussed the CODE STATUS with the patient's and son. #12 DVT prophylaxis: SCDs, status post TPA. This note was generated with Dragon dictation software. It may contain incorrect words, spelling, and punctuation that were not noted in checking the note before signing. Code Visit Inpatient E&M: 71992 Subs Hosp L3
[2019-09-10] MEDS: Lactated Ringers 1,000 ML 125 ML IV ×2 (09:27→18:36)
--- NOTE | 2019-09-10 09:27 | CASEMGMT ---
RN CM Assessment Presentation: Acute L MCA stroke, probable NSTEMI Intro role of CM and purpose of RN CM assessment to during ICU interdisciplinary rounds. Spoke with after rounds re: assessment. Demographics, PCP and Pharmacy verified. Per , pt was independent and active prior to this admission. No care needs prior. Discussed CM/SW will continue to follow pt's progress and assist with DC planning and needs. Emotional support given and pt's aware CM is available if needed for support or questions. PCP: Dr. Jose Specialists: Dr. Andersen, cardiology; Dr. Urbina nephrology Preferred Pharmacy: [facility] Insurance: [place] [facility] Prescription Benefit: yes LNOK: Lucita Sparks, Living Arrangements: Lives in one story home, 2 steps into home. Pt was independent with ADL's, no care needs prior to admission Transportation: pt drove; anticipate family will need to assist with transportation on dc. DME: cane, did not use. No ambulatory DME prior to admission. HHC/SNF: no SW Referral: yes, anticipate pt will need Inpt Rehab vs SNF on discharge Patient DC goals: undetermined DC PLAN: undetermined. Anticipate Inpt Rehab vs SNF. Frankie JIM RN ACM
[2019-09-10] MEDS: Famotidine 200 MG/20 ML MDV 20 MG in 0.9% Normal Saline (Pres. free 8 ML 300 MG IV (09:29)
[2019-09-10] MEDS: fentaNYL drip 100 ML 7.5 MCG IV (12:00)
[2019-09-10 12:56] LABS: Bedside Glucose 92 mg/dL (70-110)
[2019-09-10 13:52] LABS: Pathologist Review Reviewed
--- NOTE | 2019-09-10 15:09 | RAD_ITS ---
STUDY: X-RAY - ABDOMEN/PELVIS REASON FOR EXAM: Male, 74 years old. OG TUBE PLACEMENT TECHNIQUE: Single AP view of the abdomen / pelvis. COMPARISON: None. FINDINGS: An orogastric tube was placed. The tip of the tube is in the body of the stomach. RAD/Abdomen Single View (Portable) IMPRESSION: The tip of the orogastric tube is within the body of the stomach. Electronically Signed: Aj Johnson, at 15:41 EST , Service support ,
[2019-09-10] MEDS: Aspirin 81 MG TAB.CHEW GT (15:41)
[2019-09-10] MEDS: Clopidogrel Bisulfate 75 MG Tablet GT (15:41)
--- NOTE | 2019-09-10 15:47 | PN.CARD_ITS ---
Subjectve: Patient seen and evaluated. Still intubated on fentanyl Objective: Vital Signs Temp Pulse Resp BP Pulse Ox 100.2 F H 98 23 H 127/75 H 99 09/10/19 15:00 09/10/19 15:00 09/10/19 15:00 09/10/19 15:00 09/10/19 15:00 Oxygen Flow Rate (L/min) 6 Oxygen Delivery Method Mechanical Ventilator Weight: 259 lb 4.218 oz Body Mass Index (BMI) 37.7 Finger Stick Blood Glucose 90 Intake and Output for Last 24 Hours 09/08/19 09/09/19 09/10/19 23:59 23:59 23:59 Intake Total 1427.88 / 1436.00 1402.89 / 1402.89 Output Total 750 / 900 425 / 425 Balance 677.88 / 536.00 977.89 / 977.89 General: Disoriented HEENT: PERRL, EOMI, Sclera Non Icteric Neck: Supple, Good ROM, No Lymph Node Enlargement Lungs: Clear to auscultation Cardiovascular: Irregular Rhythm, Normal S1, Normal S2, No Murmurs, No Rubs, No Gallops Vascular: No Carotid Bruits, Normal Femoral Pulses, Normal Radial Pulses, Normal Dorsalis Pedal Pulse, Normal Posterior Tibial Pulses Abdomen: Bowel Sounds Present, Soft, Non Tender, No HSM, No Organomegaly Extremities: No Cyanosis, No Clubbing, No edema Neurological: - - Right-sided neglect noted 09/10/19 04:10: WBC 12.8 H, RBC 3.09 L, Hgb 9.4 L, Hct 30.1 L, MCV 97.4 H, MCH 30.4, MCHC 31.2 L, Plt Count 176, MPV 11.0, Immature Gran % (Auto) 0.500, Neut % (Auto) 71.2 H, Lymph % (Auto) 15.0 L, [place] % (Auto) 12.1 H, Eos % (Auto) 0.9, Baso % (Auto) 0.3, Absolute Neuts (auto) 9.1 H, Nucleated RBC % 0.2 09/10/19 04:10: PT 17.3 H, INR 1.4 09/10/19 04:10: Sodium 138, Potassium 5.1, Chloride 109 H, Carbon Dioxide 24.0, Anion Gap 5, BUN 51 H, Creatinine 3.07 H, Est GFR (MDRD) Af Amer 26 L, Est GFR (MDRD) Non-Af 21 L, BUN/Creatinine Ratio 16.6, Glucose 71 L, Calcium 8.1 L, Total Bilirubin 0.80 Rhythm: EKG: ECHO: Stress Test: Cardiac Cath: PCI: CT Surgery: Holter monitor: EPS: PPM: CXR: Chest CT Scan: Medical Necessity - Tobacco Use Smoking Status: Former smoker Assessment/Plan 1. Coronary artery disease * Patient is status post remote coronary artery bypass surgery. Patient underwent cardiac catheterization today which demonstrated patency of the left internal mammary artery to the left anterior descending artery and patent saphenous vein graft to obtuse marginal vessel. The Y graft as a saphenous vein graft to the left posterior descending artery and the other obtuse marginal branch was noted to be occluded. There was also moderately severe disease noted of the circumflex artery as well as a nondominant right coronary artery with a high-grade ostial stenosis. * Based on the above angiographic findings the plan was to continue to treat the patient with medication. * The troponin elevation that was noted immediately post procedure is unlikely to be from a myocardial infarction. There is no rise and fall as well as the fact that the peak was less than 30 minutes after the event. 2. Cerebrovascular accident * Patient sustained a cerebrovascular accident in the perioperative period following the cardiac catheterization. It is unclear whether the above was due to plaque dislodgment or from the cessation of the factor X inhibitor a few days prior to the above procedure. Initial CT scan did not demonstrate any evidence of bleed or acute infarct. However due to the timing as well as the clinical presentation, on consultation with the neurologist TPA was initiated. A FemoStop was placed in the groin to prevent any bleeding. This is thus far been stable * Patient admitted to the ICU and would follow-up following stroke protocol. * MRI done today demonstrates evidence of acute infarct in the MCA territory left-sided 3. Cardiac dysrhythmias * Patient has a history of paroxysmal atrial fibrillation and had been maintaining sinus rhythm. Patient however noted post CVA to have gone into initial 2-1 AV block and now A-V dissociation. * We will hold off on beta-antoine for now * At this time patient is maintaining blood pressure and hemodynamically stable and there is no reason for urgent pacemaker placement. * 4. Hypertension * Good control we will continue to monitor patient's blood pressure to allow passive hypertension. * 5, risk factor modification * Patient will continue with aggressive risk factor modification. * * Overall the patient's prognosis is guarded at this particular time. I had an extensive discussion explaining the above to the patient's as well as their son. All questions answered to the best of my ability and they expressed understanding.
[2019-09-10] MEDS: Vital AF 1.2 Cal Liquid 1,000 ML 60 ML GT (15:57)
--- NOTE | 2019-09-10 16:58 | CHAPLAIN ---
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 ___ Other (describe below) Sacrament/Intervention _x__ Active listening ___ Anointing ___ Islam ___ Bereavement ___ Communion _x__ Alda exploration ___ _x__ Life review _x__ Prayer ___ Reconciliation ___ Sacrament of Sick _x__ Supportive presence ___ Wedding ___ Other (describe below) Pastoral Comments met with family of patient outside of room and later with other family members in the waiting area; entered room with spouse and a [id number]; pt was awake and could respond minimally; stood with family at bedside and offered prayer at their request; sat with spouse and family to listen to their review of pt and his life; spouse has some questions to verbalize about the future; family is well connected to support of other family and friends as well as their yazidism but request the ongoing support of this fitness studies teacher as he is available;
[2019-09-10 17:35] LABS: Bedside Glucose 85 mg/dL (70-110)
[2019-09-10] MEDS: Acetaminophen 650 MG Suppository RECTAL (20:36)
[2019-09-10] MEDS: Chlorhexidine 15 ML PO (22:30)
[2019-09-11] VITALS (37 sets, daily range): BP systolic 102–190; BP diastolic 59–95; PULSE 69–110; RESP 12–37; TEMP 36.2–38.2; O2SAT 22–99
[2019-09-11] MEDS: fentaNYL drip 100 ML 7.5 MCG IV (00:56)
[2019-09-11] MEDS: Lactated Ringers 1,000 ML 125 ML IV (02:19)
[2019-09-11] MEDS: Insulin Lispro 100 UNIT/ML INSULN.PEN SC ×3 (05:31→17:21)
[2019-09-11 05:46] LABS: Bedside Glucose 152 mg/dL (70-110)
[2019-09-11] MEDS: CHLORHEXIDINE GLUC 2% CLOTH 1 EACH TOWELETTE TOPICAL (06:13)
--- NOTE | 2019-09-11 06:43 | PN_ITS ---
Subjective: The patient was seen and examined at the bedside this morning. Events from the last 24 hours have been reviewed. The patient remains febrile, but is hemodynamically stable. FiO2 requirement is 40%. The patient has done well this morning on his spontaneous breathing trial. Arterial blood gas was obtained and is appropriate. The patient is alert and able to follow simple commands. While he has been primarily flaccid on his right side, the patient was able to wiggle his right toes this morning. He did have some secretion production overnight, although this was not significant. Following my bedside evaluation of the patient this morning, he was deemed appropriate for a trial of extubation. Therefore, under my direct supervision, the patient was extubated to supplemental oxygen via nasal cannula. Objective: The patient's most recent lab work, culture data and imaging studies have all been personally reviewed. Surface echocardiogram revealed moderate concentric LVH with an ejection fraction of 60% and stage II diastolic dysfunction. Pulmonary artery systolic pressure was estimated to be 38 mmHg. Blood, sputum and urine cultures are currently pending. Brain MRI revealed large acute infarction in the left parietal lobe. No hemorrhage was identified. General: - - Remains intubated and mechanically ventilated. Currently tolerating spontaneous mode of mechanical ventilation. HEENT: Atraumatic, PERRLA, Normocephalic Oral: No Gingival or Mucosal Lesions/ Ulcerations, - - Endotracheal tube remains in place Neck: Supple, No Nodes, Trachea Midline Lungs: No wheeze, No rales, Rhonchi Cardiovascular: Normal S1, Normal S2, Irregular Rate Abdomen: Bowel Sounds Present, Soft, Non Tender, Obese Extremities: No clubbing, No cyanosis, No edema Skin: No breakdown Musculoskeletal: No Tenderness to Palpation of Joints or Extremities Lymphatic: No Cervical, Supraclavicular, or Inguinal Adenopathy Neurological: - - Alert and able to follow simple commands. Remains largely flaccid on the right side. Vital Signs Temp Pulse Resp BP Pulse Ox 100.4 F H 92 20 H 161/81 H 94 09/11/19 06:00 09/11/19 06:00 09/11/19 06:00 09/11/19 06:00 09/11/19 06:00 Oxygen Flow Rate (L/min) 6 Oxygen Delivery Method Mechanical Ventilator Weight: 245 lb 2.464 oz Body Mass Index (BMI) 37.7 Finger Stick Blood Glucose 90 Intake and Output for Last 24 Hours 09/09/19 09/10/19 09/11/19 23:59 23:59 23:59 Intake Total 1427.88 / 1436.00 2519.14 / 3586.64 2174.41 / 2174.41 Output Total 750 / 900 600 / 1100 1000 / 1000 Balance 677.88 / 536.00 1919.14 / 2486.64 1174.41 / 1174.41 Labs (Last 48 Hours) 09/09/19 09/09/19 09/09/19 09:40 09:40 09:40 WBC 11.8 H RBC 3.36 L Hgb 10.4 L Hct 32.4 L MCV 96.4 H MCH 31.0 MCHC 32.1 RDW Std Deviation 51.8 H RDW Coeff of Elias 15.1 H Plt Count 188 MPV 10.8 Immature Gran % (Auto) 0.500 Neut % (Auto) 74.1 H Lymph % (Auto) 12.8 L [place] % (Auto) 11.4 H Eos % (Auto) 0.8 Baso % (Auto) 0.4 Absolute Neuts (auto) 8.7 H Absolute Lymphs (auto) 1.51 Nucleated RBC % 0 Differential Comment Diff Path Review Reactive Lymphocytes PT 16.8 H INR 1.4 APTT 41.0 H Sodium 137 Potassium 4.5 Chloride 105 Carbon Dioxide 27.0 Anion Gap 5 BUN 40 H Creatinine 1.84 H Estim Creat Clear Calc 33.04 Est GFR (MDRD) Af Amer 46 L Est GFR (MDRD) Non-Af 38 L BUN/Creatinine Ratio 21.7 H Glucose 91 Hemoglobin A1c Calcium 8.5 Total Bilirubin AST ALT Alkaline Phosphatase Troponin I 11.300 H* Total Protein Albumin Globulin Albumin/Globulin Ratio Triglycerides Cholesterol LDL Cholesterol VLDL Cholesterol HDL Cholesterol MRSA (PCR) POC Glucose 09/09/19 09/09/19 09/09/19 09:40 13:33 17:49 WBC RBC Hgb Hct MCV MCH MCHC RDW Std Deviation RDW Coeff of Elias Plt Count MPV Immature Gran % (Auto) Neut % (Auto) Lymph % (Auto) [place] % (Auto) Eos % (Auto) Baso % (Auto) Absolute Neuts (auto) Absolute Lymphs (auto) Nucleated RBC % Differential Comment Diff Path Review Reactive Lymphocytes PT INR APTT Sodium 137 Potassium 4.7 Chloride 109 H Carbon Dioxide 25.0 Anion Gap 3 L BUN 42 H Creatinine 1.91 H Estim Creat Clear Calc 31.83 Est GFR (MDRD) Af Amer 44 L Est GFR (MDRD) Non-Af 37 L BUN/Creatinine Ratio 22.0 H Glucose 111 H Hemoglobin A1c 6.9 H Calcium 8.2 L Total Bilirubin 0.70 AST 56 H ALT 27 Alkaline Phosphatase 64 Troponin I 10.600 H* Total Protein 6.0 L Albumin 2.4 L Globulin 3.6 Albumin/Globulin Ratio 0.7 L Triglycerides 89 Cholesterol 87 LDL Cholesterol 32 VLDL Cholesterol 18 HDL Cholesterol 37 L MRSA (PCR) POC Glucose 79 09/09/19 09/10/19 09/10/19 23:20 01:05 04:10 WBC 12.8 H RBC 3.09 L Hgb 9.4 L Hct 30.1 L MCV 97.4 H MCH 30.4 MCHC 31.2 L RDW Std Deviation 56.3 H RDW Coeff of Elias 15.9 H Plt Count 176 MPV 11.0 Immature Gran % (Auto) 0.500 Neut % (Auto) 71.2 H Lymph % (Auto) 15.0 L [place] % (Auto) 12.1 H Eos % (Auto) 0.9 Baso % (Auto) 0.3 Absolute Neuts (auto) 9.1 H Absolute Lymphs (auto) 1.91 Nucleated RBC % 0.2 Differential Comment Diff Path Review Reviewed Reactive Lymphocytes 1+ PT INR APTT Sodium Potassium Chloride Carbon Dioxide Anion Gap BUN Creatinine Estim Creat Clear Calc Est GFR (MDRD) Af Amer Est GFR (MDRD) Non-Af BUN/Creatinine Ratio Glucose Hemoglobin A1c Calcium Total Bilirubin AST ALT Alkaline Phosphatase Troponin I Total Protein Albumin Globulin Albumin/Globulin Ratio Triglycerides Cholesterol LDL Cholesterol VLDL Cholesterol HDL Cholesterol MRSA (PCR) Negative POC Glucose 70 09/10/19 09/10/19 09/10/19 04:10 04:10 06:41 WBC RBC Hgb Hct MCV MCH MCHC RDW Std Deviation RDW Coeff of Elias Plt Count MPV Immature Gran % (Auto) Neut % (Auto) Lymph % (Auto) [place] % (Auto) Eos % (Auto) Baso % (Auto) Absolute Neuts (auto) Absolute Lymphs (auto) Nucleated RBC % Differential Comment Diff Path Review Reactive Lymphocytes PT 17.3 H INR 1.4 APTT Sodium 138 Potassium 5.1 Chloride 109 H Carbon Dioxide 24.0 Anion Gap 5 BUN 51 H Creatinine 3.07 H Estim Creat Clear Calc 19.80 Est GFR (MDRD) Af Amer 26 L Est GFR (MDRD) Non-Af 21 L BUN/Creatinine Ratio 16.6 Glucose 71 L Hemoglobin A1c Calcium 8.1 L Total Bilirubin 0.80 AST 41 H ALT 24 Alkaline Phosphatase 62 Troponin I Total Protein 6.1 L Albumin 2.5 L Globulin 3.6 Albumin/Globulin Ratio 0.7 L Triglycerides Cholesterol LDL Cholesterol VLDL Cholesterol HDL Cholesterol MRSA (PCR) POC Glucose 75 09/10/19 09/10/19 09/11/19 12:53 17:24 05:27 WBC RBC Hgb Hct MCV MCH MCHC RDW Std Deviation RDW Coeff of Elias Plt Count MPV Immature Gran % (Auto) Neut % (Auto) Lymph % (Auto) [place] % (Auto) Eos % (Auto) Baso % (Auto) Absolute Neuts (auto) Absolute Lymphs (auto) Nucleated RBC % Differential Comment Diff Path Review Reactive Lymphocytes PT INR APTT Sodium Potassium Chloride Carbon Dioxide Anion Gap BUN Creatinine Estim Creat Clear Calc Est GFR (MDRD) Af Amer Est GFR (MDRD) Non-Af BUN/Creatinine Ratio Glucose Hemoglobin A1c Calcium Total Bilirubin AST ALT Alkaline Phosphatase Troponin I Total Protein Albumin Globulin Albumin/Globulin Ratio Triglycerides Cholesterol LDL Cholesterol VLDL Cholesterol HDL Cholesterol MRSA (PCR) POC Glucose 92 85 152 H Clinical Impression(s) from Imaging Studies Chest X-Ray 09/09/19 09:34 IMPRESSION: The tip of the endotracheal tube is at 4 cm proximal to the jennifer. Cardiomegaly and mild degree of CHF. Electronically Signed: Aj Johnson at 11:09 EST , Service support , Renal Ultrasound 09/10/19 06:48 IMPRESSION: No suspicious sonographic findings, bilateral renal cysts Electronically Signed: Chris Arias MD at 14:52 EST , Service support , Brain MRI 09/10/19 06:52 IMPRESSION: Large acute infarct in the left lateral parietal lobe, MCA vascular territory. No hemorrhage. N.B. : The above information has been verbally conveyed by Reggie James to Dr. Joao DO, on 09/10/2019 13:49:11 (ET). Electronically Signed: Reggie James, at 13:50 EST Tel , Service support , ADDENDUM: 09/10/19 1356 IMPRESSION: Large acute infarct in the left lateral parietal lobe, MCA vascular territory. No hemorrhage. N.B. : The above information has been verbally conveyed by Reggie James to Dr. Joao DO, on 09/10/2019 13:49:11 (ET). Electronically Signed: Reggie James, at 13:50 EST Tel , Service support , Chest X-Ray 09/10/19 07:15 IMPRESSION: The CHF as improved. Residual atelectasis and/or infiltrate at the left lung base. Electronically Signed: Aj Johnson, at 11:16 EST , Service support , KUB X-Ray 09/10/19 15:09 IMPRESSION: The tip of the orogastric tube is within the body of the stomach. Electronically Signed: Aj Johnson, at 15:41 EST , Service support , Medical Necessity - Tobacco Use Smoking Status: Former smoker Assessment/Plan All Active Problems (Last Updated 09/09/19 @ 11:33 by Gaurang Ellington MD) Acute respiratory failure (Acute) Acute ischemic left MCA stroke (Acute) RECOMMENDATIONS: 1. Proceed with a trial of extubation. Once extubated, wean supplemental oxygen to maintain saturations at or above 90%. 2. Encourage incentive spirometer use. 3. PT/OT/speech evaluations today. 4. Continue empiric antimicrobials, pending infectious work-up. 5. Stop supplemental IV fluids. 6. Obtain repeat labs this morning. 7. Continue aspirin and Plavix x 10 days, followed by conversion to Xarelto, per neurology recommendations. IMPRESSIONS: 1. Acute ischemic CVA status post TPA The patient presented post heart catheterization with symptoms concerning for left MCA syndrome. The patient did receive TPA administration, with follow-up MRI demonstrating a large acute infarction in the left parietal lobe. The patient was able to be extubated this morning. We will plan to proceed with PT/OT/speech evaluations today. The patient will be continued on aspirin and Plavix, with plans to transition to Xarelto in 10 days per neurology recommendations. 2. Acute respiratory failure The patient was intubated in the emergency department over worsening lethargy and hypoxemia. The patient has improved clinically and was able to be extubated on the morning of September 11. His supplemental oxygen will be weaned to maintain oxygen saturations at or above 90%. The patient will remain on empiric antimicrobials, pending finalized infectious work-up. Encourage incentive spirometer use and mobilize patient as tolerated. Supplemental IV fluids can be discontinued. 3. Acute kidney injury Improving. Potentially related to ATN in the setting of tenuous hemodynamics. In addition, the patient did receive contrast for both a CTA and cardiac catheterization, making contrast nephropathy a possibility. Renal ultrasound was unremarkable. Obtain repeat labs this morning. Continue to monitor urine o utput. No indication for renal replacement therapy at this time. 4. History of coronary artery disease/troponin elevation/paroxysmal atrial fibrillation/heart block Repeat echocardiogram was unremarkable. Cardiology is currently following to assist with management. 5. Chronic kidney disease/diabetes mellitus/hypertension/hyperlipidemia/hypothyroidism/obesity Complicates care, management, recovery and prognosis. Continue to hold home antihypertensives. UPDATE: The patient has continued to have difficulty all afternoon with clearance of airway secretions, likely 2/2 residual deficits from his CVA. His oxygen requirements and work of breathing have been steadily increasing. I spoke to the patient's about his status and the possible need for re-intubation. She and her family have already spoke regarding this issue and they wish the patient to be DNR-CCA without plans for re-intubation. TIME: 40 minutes of critical care time, independent of procedures, was spent addressing the patient's acute ischemic CVA status post TPA administration, acute respiratory failure, history of coronary artery disease, troponin elevation, heart block, acute kidney injury, review of all data and collaboration with the care team. ([id number]) Code Visit [id number]: [id number] Critical care first hour
[2019-09-11 07:10] LABS: Absolute Lymphocyte Count 0.57 X10^3/uL (0.83-4.51); Absolute Neutrophil Count 8.8 X10^3/uL (2.0-7.7); Basophil# 0.04 X10^3/uL; Basophil% 0.4 % (0-1); Eosinophil# 0.23 X10^3/uL; Eosinophils% 2.1 % (0-5); Hematocrit 31.3 % (40-54); Hemoglobin 9.8 g/dL (13.0-16.5); Lymphocyte # 0.57 X10^3/ul (4.0); Lymphocyte % 5.3 % (19-41); Mean Corp Hgb Conc 31.3 g/dL (32-36); Mean Corpuscular Hgb 30.4 pg (27.0-32.0); Mean Corpuscular Volume 97.2 fL (80-94); Mean Platelet Vol. 11.1 fl (6.2-12.0); Monocyte# 1.06 X10^3/uL; Monocyte% 9.9 % (0-10); NRBC Flagged by Analyzer 0 % (0-5); Neutrophil # 8.75 X10^3/uL (2.7-7.7); Neutrophil % 81.5 % (47-70); POSITIVE DIFFERENTIAL YES; Platelet Count 193 K/mm3 (150-450); RBC Distribution Width CV 15.6 % (11.6-14.6); RBC Distribution Width SD 55.7 fl (35.1-43.9); Red Blood Count 3.22 M/mm3 (4.6-6.2); White Blood Count 10.7 K/mm3 (4.4-11.0)
[2019-09-11 07:11] LABS: Differential Indicated SCAN CRITERIA MET
[2019-09-11 07:11] LABS: Base Excess -3 mmol/L (-2 to +2); Bicarbonate 22.1 mmol/L (22-26); Blood Gas Specimen Type ART; FI02 40; Mode CPAP PS; O2 Delivery Device Vent; PEEP 5; PO2 64 mmHG (75-100); SITE R Radial; SO2 92 % (95-99); Time Given 705; Total Carbon Dioxide 23 mmol/L; pCO2 35.9 mmHg (35-45)
[2019-09-11 07:35] LABS: Anion Gap 7 (5-15); BUN 51 mg/dL (7-18); BUN/Creat Ratio 20.7 RATIO (10-20); Calcium,Total 8.4 mg/dL (8.5-10.1); Chloride 115 mmol/L (98-107); Creatinine, Serum 2.46 mg/dL (0.70-1.30); EST Glomerular Filtration Rate 27 mL/min (>60); Est Glom Filt Rate - Afr Amer 33 mL/min (>60); Estimated Creatinine Clearance 24.72 ml/min; Glucose 172 mg/dL (74-106); Potassium 4.4 mmol/L (3.5-5.1); Sodium Level 144 mmol/L (136-145)
--- NOTE | 2019-09-11 09:00 | PCM.PROGNOTE ---
Patient Problems: Active and Suspected Problems (Last Updated 09/09/19 @ 11:33 by Gaurang Ellington MD) Acute respiratory failure (Acute) Acute ischemic left MCA stroke (Acute) Subjective: Chief complaint: Follow-up after admission for acute ischemic left MCA stroke with resultant right side hemiplegia, acute respiratory failure, probable non-ST relation NE and he developed DAGOBERTO on stage III chronic kidney disease. Patient seen and examined. He was just extubated this morning. He is awake, following simple commands. Was able to raise his left hand and left leg but not the right side. He is still having spikes of low-grade fever, heart rate improved and now he is in the 90s, blood per slight elevated, pulse ox is 93% on 5 L. - Physical Exam Vitals/I&O's: Vital Signs Temp Pulse Resp BP Pulse Ox 97.1 F L 94 26 H 160/87 H 93 09/11/19 08:00 09/11/19 08:00 09/11/19 08:00 09/11/19 08:00 09/11/19 08:00 Oxygen Flow Rate (L/min) 5 Oxygen Delivery Method Nasal Cannula Weight: 245 lb 2.464 oz Body Mass Index (BMI) 37.7 Finger Stick Blood Glucose 90 Intake and Output for Last 24 Hours 09/09/19 09/10/19 09/11/19 23:59 23:59 23:59 Intake Total 1427.88 / 1436.00 2519.14 / 3586.64 2174.41 / 2174.41 Output Total 750 / 900 600 / 1100 1000 / 1000 Balance 677.88 / 536.00 1919.14 / 2486.64 1174.41 / 1174.41 General: Alert, Cooperative, - - Short of breath, lots of secretions. HEENT: Atraumatic, PERRLA, EOMI, Normocephalic, - - Forced deviation of both eyes to the left. Oral: Moist Mucosa, No Gingival or Mucosal Lesions/ Ulcerations Neck: Supple, No JVD, Negative Carotid Bruits, Trachea Midline, Thyroid Normal Size and Texture Lungs: No wheeze, No rales, Diminished, Rhonchi, Short of Breath, - - Decreased breath sounds bilateral, bilateral rhonchi, transmitted sounds. Cardiovascular: Regular rate, Regular Rhythm, Normal S1, Normal S2, No murmurs, PMI Normal, Tachycardic Abdomen: Bowel Sounds Present, Soft, Non Tender, Non-Distended, No Hepato-splenomegaly, Obese Extremities: No clubbing, No cyanosis, No edema Skin: No rashes, No breakdown Lymphatic: No Cervical, Supraclavicular, or Inguinal Adenopathy Neurological: - - Right side flaccid hemiplegia, aphasia, forced eyes deviation to the left side. Psych/Mental Status: - - Unable to assess. Laboratory Results 09/10/19 04:10: Diff Path Review Reviewed 09/10/19 12:53: POC Glucose 92 09/10/19 17:24: POC Glucose 85 09/11/19 05:27: POC Glucose 152 H 09/11/19 06:55: WBC 10.7, RBC 3.22 L, Hgb 9.8 L, Hct 31.3 L, MCV 97.2 H, MCH 30.4, MCHC 31.3 L, RDW Std Deviation 55.7 H, RDW Coeff of Elias 15.6 H, Plt Count 193, MPV 11.1, Immature Gran % (Auto) 0.800, Neut % (Auto) 81.5 H, Lymph % (Auto) 5.3 L, Mcdowell % (Auto) 9.9, Eos % (Auto) 2.1, Baso % (Auto) 0.4, Absolute Neuts (auto) 8.8 H, Absolute Lymphs (auto) 0.57 L, Nucleated RBC % 0, Differential Comment 09/11/19 06:55: Sodium 144, Potassium 4.4, Chloride 115 H, Carbon Dioxide 22.0, Anion Gap 7, BUN 51 H, Creatinine 2.46 H, Estim Creat Clear Calc 24.72, Est GFR (MDRD) Af Amer 33 L, Est GFR (MDRD) Non-Af 27 L, BUN/Creatinine Ratio 20.7 H, Glucose 172 H, Calcium 8.4 L 09/11/19 07:05: Specimen Type ART, Sample Site R Radial, pH 7.40, Bicarbonate Actual 22.1, POC Total CO2 23, Base Excess -3 L, O2 Saturation 92 L, O2 % 40, ABG pCO2 35.9, ABG pO2 64 L, O2 Delivery Device Vent, Vent Mode CPAP PS, POC PEEP 5, Blood Gas Notified Whom ICU MD, Blood Gas Notified Time 705 Clinical Impression(s) from Imaging Studies Brain MRI 09/10/19 06:52 IMPRESSION: Large acute infarct in the left lateral parietal lobe, MCA vascular territory. No hemorrhage. N.B. : The above information has been verbally conveyed by Reggie James to Dr. Joao DO, on 09/10/2019 13:49:11 (ET). Electronically Signed: Reggie James, at 13:50 EST Tel , Service support , ADDENDUM: 09/10/19 1356 IMPRESSION: Large acute infarct in the left lateral parietal lobe, MCA vascular territory. No hemorrhage. N.B. : The above information has been verbally conveyed by Reggie James to Dr. Joao DO, on 09/10/2019 13:49:11 (ET). Electronically Signed: Reggie James, at 13:50 EST Tel , Service support , Chest X-Ray 09/10/19 07:15 IMPRESSION: The CHF as improved. Residual atelectasis and/or infiltrate at the left lung base. Electronically Signed: Aj Johnson, at 11:16 EST , Service support , KUB X-Ray 09/10/19 15:09 IMPRESSION: The tip of the orogastric tube is within the body of the stomach. Electronically Signed: Aj Johnson, at 15:41 EST , Service support , Current Medications Acetaminophen (Tylenol) 650 mg RECTAL Q6H PRN PRN PRN Reason: Temp > 100.7 Last Admin: 09/10/19 20:36 Dose: 650 mg Documented by: Aspirin (Aspirin, Baby) 81 mg GT DAILY@0800 DALE Last Admin: 09/10/19 15:41 Dose: 81 mg Documented by: Chlorhexidine Gluconate () 15 ml PO BID [facility] Last Admin: 09/10/19 22:30 Dose: 15 ml Documented by: Chlorhexidine Gluconate () 1 each TOPICAL DAILY [facility] Last Admin: 09/11/19 06:13 Dose: 1 each Documented by: Clopidogrel Bisulfate (Plavix) 75 mg GT DAILY [facility] Last Admin: 09/10/19 15:41 Dose: 75 mg Documented by: Glucagon () 1 mg IM .X1 PRN PRN Reason: Hypoglycemia Famotidine 20 mg/ Sodium (Chloride) 10 mls @ 300 mls/hr IV DAILY [facility] Last Infusion: 09/10/19 11:05 Dose: Infused Documented by: Dextrose (Dextrose 10%-Water) 250 mls @ 999 mls/hr IV .Q16M PRN; Protocol PRN Reason: HYPOGLYCEMIA Last Infusion: 09/09/19 18:19 Dose: Infused Documented by: Piperacillin Sod/Tazobactam (Sod 3.375 gm/ Sodium Chloride) 50 mls @ 12.5 mls/hr IV Q8 [facility] Last Admin: 09/11/19 05:29 Dose: 12.5 mls/hr Documented by: Insulin Human Lispro (Humalog Kwikpen (Bkc)) 0 unit SC Q6 DALE; Protocol Last Admin: 09/11/19 05:31 Dose: 1 u Documented by: Ondansetron HCl (Zofran) 4 mg IV Q8H PRN PRN PRN Reason: NAUSEA/VOMITING Sodium Chloride () 10 - 40 ml IV UD PRN PRN Reason: SALINE FLUSH Medical Necessity - Tobacco Use Smoking Status: Former smoker Assessment/Plan All Active Problems (Last Updated 09/09/19 @ 11:33 by Gaurang Ellington MD) Acute respiratory failure (Acute) Acute ischemic left MCA stroke (Acute) This is a 74 years old male patient presented to the emergency room from the [facility] for confusion and trouble speaking after completion of cardiac catheterization, found to have acute left MCA stroke, acute respiratory failure and probable acute elevation NE. #1 acute ischemic left MCA stroke: With resultant right side flaccid hemiplegia and right-sided neglect. Status post TPA. MRI brain revealed large acute infarct of the left lateral bilateral lobe, no hemorrhage. CTA of the head and neck revealed attenuation of the branches of the left MCA, calcific plaques at the origin of the right and left carotid arteries with less than 50% stenosis. Status post extubation. Still having spikes of fever, slight tachycardia, blood pressure is elevated, pulse ox is maintained on 5 L of oxygen. Patient is on aspirin and Plavix through the G-tube according to neurology recommendations. Plan: Speech therapy evaluation and treatment, will switch aspirin and Plavix to p.o. if he passes swallowing evaluation. #2 acute respiratory failure: Status post extubation this morning. He is short of breath, maintaining his pulse ox at 93% on 5 L. Still having spikes of fever, tachycardia, elevated blood pressure. Plan to continue deep suction, wean off oxygen as tolerated. #3 Elevated troponin/probable non-ST relation NE: No evidence of acute ST depression on EKG. patient was bradycardic, today he has been tachycardic, blood pressure is up. Patient underwent cardiac catheterization today just before this admission, findings reviewed. Status post TPA. Cardiology on the case. #4 acute kidney injury on top of stage III chronic kidney disease: Baseline creatinine has been around 1.4 to 1.7 mg/dL. He has been on IV fluids, creatinine is down to 2.46, improving. It is probably due to ATN secondary to hypotension. Renal ultrasound showed no evidence of kidney stones or obstructive uropathy. Plan to continue IV fluids, repeat BMP tomorrow morning. #5 CAD status post stents and CABG: Plan as above, status post TPA, cardiology on the case. He is on aspirin and Plavix as above. Plan to resume statins and metoprolol as well as ramipril if patient passes swallowing evaluation. #6 paroxysmal atrial flutter/fibrillation: Today, heart rate has been up to 100, remains around 90s. Plan to resume metoprolol for rate control if he passes swallow evaluation. #7 type 2 diabetes mellitus: Blood sugar has been stable, he is on insulin sliding scale. Hemoglobin A1c was 6.9. #8 hypertension: Blood pressure started to go up. Plan to resume Coreg and ramipril as above. #9 hyperlipidemia: Statins on hold, may resume if he passes swallowing evaluation... #10 hypothyroidism: Levothyroxine on hold. #11 CODE STATUS: DNR CCA. I discussed the CODE STATUS with the patient's and son. #12 DVT prophylaxis: SCDs, status post TPA. This note was generated with [employer] dictation software. It may contain incorrect words, spelling, and punctuation that were not noted in checking the note before signing. Code Visit Inpatient E&M: 49505 Subs Hosp L2
--- NOTE | 2019-09-11 10:02 | CASEMGMT ---
SW participated in ICU rounds, pt's and son present. SW and CM then spoke w/family after rounds regarding discharge plan. SNF and inpt rehab was discussed, SW educated family on these two levels of care.Son and both would want pt to go to [facility] inpt rehab if possible. SW explained that there will need to be bed availability and insurance will need to authorize. SW explained if insurance does not approve inpt rehab, then we can try for intermediate level of care. They also asked about VA benefits. states she has received information in the mail stating pt has benefits. Pt has not been to a VA physician in a few years however. Son does not think pt is service connected. SW explained pt may be able to access some VA benefits such as aide services at home, however pt would need to get re-established with the VA in order to access those benefits. SW explained will bring in lists of both nursing homes and inpt rehab that take pt's insurance, and will make referral to inpt rehab as well. ANTHONY called inpt rehab, spoke w/Neha, she states they can take pt and will start precert once pt is able to participate in therapy and it is a little closer to discharge. ANTHOYN printed lists of inpt rehab and SNF that take pt's insurance, and gave these to pt's along w/a list of nursing homes w/the Medicare rating. SW explained to referral was made to inpt rehab, and will see if insurance authorizes. If insurance does not authorize, may be agreeable to TCU for pt. SW also offered support to . ANTHONY will continue to follow. Also, PHQ-9 not yet completed as pt not able to participate at this time. LISETTE Ramsey
[2019-09-11] MEDS: 0.9% Normal Saline 1,000 ML 75 ML IV ×2 (10:31→18:02)
[2019-09-11] MEDS: Famotidine 200 MG/20 ML MDV 20 MG in 0.9% Normal Saline (Pres. free 8 ML 300 MG IV (10:32)
[2019-09-11] MEDS: Chlorhexidine 15 ML PO ×2 (10:33→21:26)
[2019-09-11 12:46] LABS: Bedside Glucose 170 mg/dL (70-110)
[2019-09-11] MEDS: Heparin Injection (Vial) 5,000 UNIT/ML VIAL 5000 UNIT SC ×2 (14:46→21:10)
--- NOTE | 2019-09-11 14:58 | PN.CARD_ITS ---
Subjectve: Patient seen and evaluated. Successfully extubated but remains arousable but mostly subconscious. Objective: Vital Signs Temp Pulse Resp BP Pulse Ox 97.9 F 77 28 H 132/73 H 90 09/11/19 12:00 09/11/19 13:30 09/11/19 12:00 09/11/19 12:00 09/11/19 13:30 Oxygen Flow Rate (L/min) 5 Oxygen Delivery Method Venturi Mask Weight: 245 lb 2.464 oz Body Mass Index (BMI) 37.7 Finger Stick Blood Glucose 90 Intake and Output for Last 24 Hours 09/09/19 09/10/19 09/11/19 23:59 23:59 23:59 Intake Total 1427.88 / 1436.00 2519.14 / 3586.64 2224.41 / 2224.41 Output Total 750 / 900 600 / 1100 1350 / 1350 Balance 677.88 / 536.00 1919.14 / 2486.64 874.41 / 874.41 General: Awake, Alert, Oriented x 3 HEENT: PERRL, EOMI, Sclera Non Icteric Neck: Supple, Good ROM, No Lymph Node Enlargement Lungs: Clear to auscultation Cardiovascular: Irregular Rhythm, Normal S1, Normal S2, No Murmurs, No Rubs, No Gallops Vascular: No Carotid Bruits, Normal Femoral Pulses, Normal Radial Pulses, Normal Dorsalis Pedal Pulse, Normal Posterior Tibial Pulses Abdomen: Bowel Sounds Present, Soft, Non Tender, No HSM, No Organomegaly Extremities: No Cyanosis, No Clubbing, No edema Musculoskeletal: No Erythema Skin: No Rashes Lymphatic: No Lymph Node Enlargement Neurological: Decreased Motor Strength, - - Right-sided weakness 09/11/19 06:55: WBC 10.7, RBC 3.22 L, Hgb 9.8 L, Hct 31.3 L, MCV 97.2 H, MCH 30.4, MCHC 31.3 L, Plt Count 193, MPV 11.1, Immature Gran % (Auto) 0.800, Neut % (Auto) 81.5 H, Lymph % (Auto) 5.3 L, [place] % (Auto) 9.9, Eos % (Auto) 2.1, Baso % (Auto) 0.4, Absolute Neuts (auto) 8.8 H, Nucleated RBC % 0 09/11/19 06:55: Sodium 144, Potassium 4.4, Chloride 115 H, Carbon Dioxide 22.0, Anion Gap 7, BUN 51 H, Creatinine 2.46 H, Est GFR (MDRD) Af Amer 33 L, Est GFR (MDRD) Non-Af 27 L, BUN/Creatinine Ratio 20.7 H, Glucose 172 H, Calcium 8.4 L 09/11/19 07:05: pH 7.40, Bicarbonate Actual 22.1, POC Total CO2 23, Base Excess -3 L, O2 Saturation 92 L, ABG pCO2 35.9, ABG pO2 64 L Rhythm: EKG: ECHO: Stress Test: Cardiac Cath: PCI: CT Surgery: Holter monitor: EPS: PPM: CXR: Chest CT Scan: Medical Necessity - Tobacco Use Smoking Status: Former smoker Assessment/Plan 1. Coronary artery disease * Patient is status post remote coronary artery bypass surgery. Patient underwent cardiac catheterization today which demonstrated patency of the left internal mammary artery to the left anterior descending artery and patent saphenous vein graft to obtuse marginal vessel. The Y graft as a saphenous vein graft to the left posterior descending artery and the other obtuse marginal branch was noted to be occluded. There was also moderately severe disease noted of the circumflex artery as well as a nondominant right coronary artery with a high-grade ostial stenosis. * Based on the above angiographic findings the plan was to continue to treat the patient with medication. * The troponin elevation that was noted immediately post procedure is unlikely to be from a myocardial infarction. There is no rise and fall as well as the fact that the peak was less than 30 minutes after the event. 2. Cerebrovascular accident * Patient sustained a cerebrovascular accident in the perioperative period following the cardiac catheterization. It is unclear whether the above was due to plaque dislodgment or from the cessation of the factor X inhibitor a few days prior to the above procedure. Initial CT scan did not demonstrate any evidence of bleed or acute infarct. However due to the timing as well as the clinical presentation, on consultation with the neurologist TPA was initiated. A FemoStop was placed in the groin to prevent any bleeding. This is thus far been stable * Patient admitted to the ICU and would follow-up following stroke protocol. * MRI done demonstrates evidence of acute infarct in the MCA territory left- sided 3. Cardiac dysrhythmias * Patient has a history of paroxysmal atrial fibrillation and had been maintaining sinus rhythm. Patient however noted post CVA to have gone into initial 2-1 AV block and now A-V dissociation. * We will hold off on beta-antoine for now * At this time patient is maintaining blood pressure and hemodynamically stable and there is no reason for urgent pacemaker placement. * He appears to have gone into atrial fibrillation and will continue to monitor this. We cannot start anticoagulation for at least another week. 4. Hypertension * Good control we will continue to monitor patient's blood pressure to allow passive hypertension. * 5, risk factor modification * Patient will continue with aggressive risk factor modification. * * Overall the patient's prognosis is guarded at this particular time. I had an extensive updated discussion explaining the above to the patient's as well as their son. All questions answered to the best of my ability and they expressed understanding.
--- NOTE | 2019-09-11 17:24 | CHAPLAIN ---
Type of Pastoral Visit ___ Initial Visit _x__ Follow-up Visit ___ On-call Visit ___ General Patient Visit ___ Spiritual Assessment ___ Family Conference ___ Bereavement ___ Rapid Response ___ Code Blue ___ Other (describe below) Pastoral Care Referral From ___ Patient _x__ Family ___ Nurse ___ Physician ___ Hot Press Operator ___ [employer]op Riv[employer] Machine Operator Helper ___ Other (describe below) Sacrament/Intervention _x__ Active listening ___ Anointing ___ Synagogue ___ Bereavement ___ Communion ___ Alda exploration ___ ___ Life review _x__ Prayer ___ Reconciliation ___ Sacrament of Sick _x__ Supportive presence ___ Wedding ___ Other (describe below) Pastoral Comments patient is off vent but is not able to communicate verbally; support and presence given to spouse and son; prayer welcomed
[2019-09-11 17:30] LABS: Bedside Glucose 153 mg/dL (70-110)
[2019-09-11 20:26] LABS: Bedside Glucose 107 mg/dL (70-110)
[2019-09-11] MEDS: Furosemide 40 MG/4 ML Vial IV (23:17)
[2019-09-12] VITALS (22 sets, daily range): BP systolic 148–190; BP diastolic 69–99; PULSE 78–107; RESP 12–31; TEMP 36.6–37.7; O2SAT 86–100; BMI 37.7
[2019-09-12] MEDS: Insulin Lispro 100 UNIT/ML INSULN.PEN SC ×2 (00:16→06:04)
[2019-09-12 00:26] LABS: Bedside Glucose 185 mg/dL (70-110)
[2019-09-12] MEDS: 0.9% Saline Lock 10 ML Syringe IV (01:17)
[2019-09-12] MEDS: hydrALAZINE 20 MG/ML Vial 10 MG IV (01:17)
[2019-09-12] MEDS: LORazepam 2 MG/ML Syringe 0.5 MG IV (01:18)
--- NOTE | 2019-09-12 02:20 | CPS ---
pt having trouble tolerating BiPAP, ripped off face mask. Switched pt back onto AirVo
[2019-09-12] MEDS: CHLORHEXIDINE GLUC 2% CLOTH 1 EACH TOWELETTE TOPICAL (05:44)
[2019-09-12] MEDS: Heparin Injection (Vial) 5,000 UNIT/ML VIAL 5000 UNIT SC (05:45)
[2019-09-12 06:11] LABS: Bedside Glucose 195 mg/dL (70-110)
--- NOTE | 2019-09-12 06:28 | PCM.PN.INT ---
Subjective: The patient was seen and examined at the bedside this morning. Events from the last 24 hours have been reviewed. The patient does have a low-grade fever this morning. He has remained hemodynamically stable. Unfortunately, the patient has continued to decompensate from a respiratory perspective, largely due to his inability to expectorate sputum. Attempts to utilize BiPAP overnight were somewhat unsuccessful, as the patient repeatedly attempted to remove the mask. He is currently on Airvo heated high flow with high FiO2 requirement. I did speak at length with the patient's yesterday regarding the patient's poor overall prognosis given his underlying neurological deficits and inability to clear secretions effectively from his airway. I expressed my concern that the patient would continue to decompensate from a respiratory perspective. However, the patient's indicated to me that a family meeting had already taken place and that they wished to make the patient DNR CCA without plans for reintubation. If there is no clinical improvement in the near future, initiation of hospice care services would be considered. Objective: The patient's most recent lab work, culture data and imaging studies have all been personally reviewed. Surface echocardiogram revealed moderate concentric LVH with an ejection fraction of 60% and stage II diastolic dysfunction. Pulmonary artery systolic pressure was estimated to be 38 mmHg. Blood, sputum and urine cultures are currently pending. Brain MRI revealed large acute infarction in the left parietal lobe. No hemorrhage was identified. General: Lethargic - The patient only attempts to open his eyes to verbal stimulation. HEENT: Atraumatic, Normocephalic Oral: Dry Mucosa Neck: Supple, No Nodes, Trachea Midline Lungs: Diminished, Rhonchi, Short of Breath, Tachypneic Cardiovascular: Normal S1, Normal S2, Irregular Rate, Tachycardic Abdomen: Bowel Sounds Present, Soft, Non Tender, Obese Extremities: No clubbing, No cyanosis Skin: No breakdown Musculoskeletal: No Tenderness to Palpation of Joints or Extremities Lymphatic: No Cervical, Supraclavicular, or Inguinal Adenopathy Neurological: - - Right-sided flaccid paralysis. Patient remains aphasic. Psych/Mental Status: Flat Affect Vital Signs Temp Pulse Resp BP Pulse Ox 99.8 F H 84 30 H 148/69 H 94 09/12/19 05:00 09/12/19 05:00 09/12/19 05:00 09/12/19 05:00 09/12/19 05:00 Oxygen Flow Rate (L/min) 5 Oxygen Delivery Method Bi-pap Weight: 252 lb 3.341 oz Body Mass Index (BMI) 37.7 Finger Stick Blood Glucose 90 Intake and Output for Last 24 Hours 09/10/19 09/11/19 09/12/19 23:59 23:59 23:59 Intake Total 2519.14 / 3586.64 3734.83 / 3734.83 50 / 50 Output Total 600 / 1100 1900 / 2425 2875 / 2875 Balance 1919.14 / 2486.64 1834.83 / 1309.83 -2825 / -2825 Labs (Last 48 Hours) 09/10/19 09/10/19 09/10/19 04:10 06:41 12:53 WBC RBC Hgb Hct MCV MCH MCHC RDW Std Deviation RDW Coeff of Elias Plt Count MPV Immature Gran % (Auto) Neut % (Auto) Lymph % (Auto) [place] % (Auto) Eos % (Auto) Baso % (Auto) Absolute Neuts (auto) Absolute Lymphs (auto) Nucleated RBC % Differential Comment Diff Path Review Reviewed Specimen Type Sample Site pH Bicarbonate Actual POC Total CO2 Base Excess O2 Saturation O2 % ABG pCO2 ABG pO2 O2 Delivery Device Vent Mode POC PEEP Blood Gas Notified Whom Blood Gas Notified Time Sodium Potassium Chloride Carbon Dioxide Anion Gap BUN Creatinine Estim Creat Clear Calc Est GFR (MDRD) Af Amer Est GFR (MDRD) Non-Af BUN/Creatinine Ratio Glucose Calcium POC Glucose 75 92 09/10/19 09/11/19 09/11/19 17:24 00:30 05:27 WBC RBC Hgb Hct MCV MCH MCHC RDW Std Deviation RDW Coeff of Elias Plt Count MPV Immature Gran % (Auto) Neut % (Auto) Lymph % (Auto) [place] % (Auto) Eos % (Auto) Baso % (Auto) Absolute Neuts (auto) Absolute Lymphs (auto) Nucleated RBC % Differential Comment Diff Path Review Specimen Type Sample Site pH Bicarbonate Actual POC Total CO2 Base Excess O2 Saturation O2 % ABG pCO2 ABG pO2 O2 Delivery Device Vent Mode POC PEEP Blood Gas Notified Whom Blood Gas Notified Time Sodium Potassium Chloride Carbon Dioxide Anion Gap BUN Creatinine Estim Creat Clear Calc Est GFR (MDRD) Af Amer Est GFR (MDRD) Non-Af BUN/Creatinine Ratio Glucose Calcium POC Glucose 85 107 152 H 09/11/19 09/11/19 09/11/19 06:55 06:55 07:05 WBC 10.7 RBC 3.22 L Hgb 9.8 L Hct 31.3 L MCV 97.2 H MCH 30.4 MCHC 31.3 L RDW Std Deviation 55.7 H RDW Coeff of Elias 15.6 H Plt Count 193 MPV 11.1 Immature Gran % (Auto) 0.800 Neut % (Auto) 81.5 H Lymph % (Auto) 5.3 L [place] % (Auto) 9.9 Eos % (Auto) 2.1 Baso % (Auto) 0.4 Absolute Neuts (auto) 8.8 H Absolute Lymphs (auto) 0.57 L Nucleated RBC % 0 Differential Comment Diff Path Review Specimen Type ART Sample Site R Radial pH 7.40 Bicarbonate Actual 22.1 POC Total CO2 23 Base Excess -3 L O2 Saturation 92 L O2 % 40 ABG pCO2 35.9 ABG pO2 64 L O2 Delivery Device Vent Vent Mode CPAP PS POC PEEP 5 Blood Gas Notified Whom ICU MD Blood Gas Notified Time 705 Sodium 144 Potassium 4.4 Chloride 115 H Carbon Dioxide 22.0 Anion Gap 7 BUN 51 H Creatinine 2.46 H Estim Creat Clear Calc 24.72 Est GFR (MDRD) Af Amer 33 L Est GFR (MDRD) Non-Af 27 L BUN/Creatinine Ratio 20.7 H Glucose 172 H Calcium 8.4 L POC Glucose 09/11/19 09/11/19 09/12/19 12:38 17:20 00:13 WBC RBC Hgb Hct MCV MCH MCHC RDW Std Deviation RDW Coeff of Elias Plt Count MPV Immature Gran % (Auto) Neut % (Auto) Lymph % (Auto) [place] % (Auto) Eos % (Auto) Baso % (Auto) Absolute Neuts (auto) Absolute Lymphs (auto) Nucleated RBC % Differential Comment Diff Path Review Specimen Type Sample Site pH Bicarbonate Actual POC Total CO2 Base Excess O2 Saturation O2 % ABG pCO2 ABG pO2 O2 Delivery Device Vent Mode POC PEEP Blood Gas Notified Whom Blood Gas Notified Time Sodium Potassium Chloride Carbon Dioxide Anion Gap BUN Creatinine Estim Creat Clear Calc Est GFR (MDRD) Af Amer Est GFR (MDRD) Non-Af BUN/Creatinine Ratio Glucose Calcium POC Glucose 170 H 153 H 185 H 09/12/19 05:56 WBC RBC Hgb Hct MCV MCH MCHC RDW Std Deviation RDW Coeff of Elias Plt Count MPV Immature Gran % (Auto) Neut % (Auto) Lymph % (Auto) [place] % (Auto) Eos % (Auto) Baso % (Auto) Absolute Neuts (auto) Absolute Lymphs (auto) Nucleated RBC % Differential Comment Diff Path Review Specimen Type Sample Site pH Bicarbonate Actual POC Total CO2 Base Excess O2 Saturation O2 % ABG pCO2 ABG pO2 O2 Delivery Device Vent Mode POC PEEP Blood Gas Notified Whom Blood Gas Notified Time Sodium Potassium Chloride Carbon Dioxide Anion Gap BUN Creatinine Estim Creat Clear Calc Est GFR (MDRD) Af Amer Est GFR (MDRD) Non-Af BUN/Creatinine Ratio Glucose Calcium POC Glucose 195 H Microbiology 09/11/19 03:00 Sputum, Induced/Lukens Gram Stain - Final 09/10/19 01:10 Urine Catheter - Andrade Urine Culture - Preliminary Culture exhibits no growth. Clinical Impression(s) from Imaging Studies Chest X-Ray 09/09/19 09:34 IMPRESSION: The tip of the endotracheal tube is at 4 cm proximal to the jennifer. Cardiomegaly and mild degree of CHF. Electronically Signed: Aj Johnson, at 11:09 EST , Service support , Renal Ultrasound 09/10/19 06:48 IMPRESSION: No suspicious sonographic findings, bilateral renal cysts Electronically Signed: Chris Arias MD at 14:52 EST , Service support , Brain MRI 09/10/19 06:52 IMPRESSION: Large acute infarct in the left lateral parietal lobe, MCA vascular territory. No hemorrhage. N.B. : The above information has been verbally conveyed by Reggie James to Dr. Joao DO, on 09/10/2019 13:49:11 (ET). Electronically Signed: Reggie James, at 13:50 EST Tel , Service support , ADDENDUM: 09/10/19 1356 IMPRESSION: Large acute infarct in the left lateral parietal lobe, MCA vascular territory. No hemorrhage. N.B. : The above information has been verbally conveyed by Reggie James to Dr. Joao DO, on 09/10/2019 13:49:11 (ET). Electronically Signed: Reggie James, at 13:50 EST Tel , Service support , Chest X-Ray 09/10/19 07:15 IMPRESSION: The CHF as improved. Residual atelectasis and/or infiltrate at the left lung base. Electronically Signed: Aj Johnson, at 11:16 EST , Service support , KUB X-Ray 09/10/19 15:09 IMPRESSION: The tip of the orogastric tube is within the body of the stomach. Electronically Signed: Aj Johnson, at 15:41 EST , Service support , Medical Necessity - Tobacco Use Smoking Status: Former smoker Assessment/Plan All Active Problems (Last Updated 09/09/19 @ 11:33 by Gaurang Ellington MD) Acute respiratory failure (Acute) Acute ischemic left MCA stroke (Acute) RECOMMENDATIONS: 1. Family meeting this morning to discuss goals of care. 2. Continue empiric antimicrobials. 3. Continue Airvo humidified high flow oxygen to maintain saturations at or above 90%. IMPRESSIONS: 1. Acute ischemic CVA status post TPA The patient presented post heart catheterization with symptoms concerning for left MCA syndrome. The patient did receive TPA administration, with follow-up MRI demonstrating a large acute infarction in the left parietal lobe. We will plan to proceed with PT/OT/speech evaluations today. The patient will be continued on aspirin and Plavix, with plans to transition to Xarelto in 10 days per neurology recommendations. 2. Acute respiratory failure The patient was intubated in the emergency department over worsening lethargy and hypoxemia. The patient has improved clinically and was able to be extubated on the morning of September 11. His supplemental oxygen will be weaned to maintain oxygen saturations at or above 90%. The patient will remain on empiric antimicrobials, pending finalized infectious work-up. Encourage incentive spirometer use and mobilize patient as tolerated. Supplemental IV fluids can be discontinued. 3. Acute kidney injury Improving. Potentially related to ATN in the setting of tenuous hemodynamics. In addition, the patient did receive contrast for both a CTA and cardiac catheterization, making contrast nephropathy a possibility. Renal ultrasound was unremarkable. Continue to monitor urine output. No indication for renal replacement therapy at this time. 4. History of coronary artery disease/troponin elevation/paroxysmal atrial fibrillation/heart block Repeat echocardiogram was unremarkable. Cardiology is currently following to assist with management. 5. Chronic kidney disease/diabetes mellitus/hypertension/hyperlipidemia/hypothyroidism/obesity Complicates care, management, recovery and prognosis. Continue to hold home antihypertensives. UPDATE: Following rounds this morning, I did meet with the patient's family to discuss goals of care. I explained my concern that I felt the patient would continue to decompensate clinically given his underlying neurological deficits and inability to clear secretions from his airway. At this time, they would like to transition to comfort care measures and focus on making him comfortable. CODE STATUS to be updated to DNR CC. Referral will be placed to hospice care services. CODE status: Discussed CODE status at length including difference between FULL code, DNR-CCA and DNR-CC status. Following discussions about the differences in these status, patient requested DNR CC CODE STATUS. Advanced Care Planning Face to Face Time: 16 minutes This note was generated with Predect dictation software. It may contain incorrect words, spelling, and punctuation that were not noted in checking the note before signing. Code Visit Inpatient E&M: 99443 Subs Hosp L3 Procedures: 06406 Advncd Care Plan 30 Min
[2019-09-12 07:27] LABS: Anion Gap 6 (5-15); BUN 33 mg/dL (7-18); BUN/Creat Ratio 17.1 RATIO (10-20); Calcium,Total 9.3 mg/dL (8.5-10.1); Chloride 117 mmol/L (98-107); Creatinine, Serum 1.93 mg/dL (0.70-1.30); EST Glomerular Filtration Rate 36 mL/min (>60); Est Glom Filt Rate - Afr Amer 44 mL/min (>60); Glucose 188 mg/dL (74-106); Potassium 3.9 mmol/L (3.5-5.1); Sodium Level 148 mmol/L (136-145)
--- NOTE | 2019-09-12 09:53 | CASEMGMT ---
Addendum entered by Emma Bermudez 09/12/19 10:20: The family has signed papers for pt for hospice. Pt will be going to the inpt hospice unit today. SW notified Tracy covering the referral phone today that pt is going inpt hospice, so will not be needing auth for rehab or TCU. LISETTE Ramsey Original Note: SW participated in ICU rounds, then physician spoke w/ and son Javier after rounds regarding pt's medical condition, prognosis. SW present. Family has decided to speak w/hospice. ANTHONY spoke w/Moira at [facility], referral sent, as per Moira Harmon would be here shortly to meet w/family. ANTHONY let and son, rest of family know. Support offered to family. Eden here now meeting w/family. ANTHONY remains available for any additional support to family. LISETTE Ramsey
[2019-09-12] MEDS: Chlorhexidine 15 ML PO (10:45)
[2019-09-12] MEDS: Famotidine 200 MG/20 ML MDV 20 MG in 0.9% Normal Saline (Pres. free 8 ML 300 MG IV (10:45)
--- NOTE | 2019-09-13 12:23 | CASEMGMT ---
PHQ-9 not completed as pt was not able to participate.
--- NOTE | 2019-09-15 10:10 | PCM.DC.SUM ---
Discharge Date and Diagnosis Date of Admission: 09/09/19 Date of Discharge: 09/12/19 - Primary Discharge Diagnosis #1 acute cardioembolic stroke left MCA territory, origin unknown #2 acute hypoxic respiratory failure #3 stage III chronic kidney disease #4 elevated troponin-not secondary to cardiac etiology, etiology from CVA #5 paroxysmal atrial fibrillation #6 coronary artery disease - Secondary Discharge Diagnosis Chronic Problems (Last Updated 09/09/19 @ 11:33 by Gaurang Ellington MD) Type 2 diabetes mellitus (Chronic) Exertional angina (Chronic) Atherosclerotic heart disease of inup[place] coronary artery without angina pectoris (Chronic) CABG x 4 MILAN-LAD, SVG-OM1, Sequential Saphenous Vein Y graft from the OM1 venous graft-OM3 and LPDA 11/17/2003. 02/20/1997 J stent of proximal CX. History of coronary artery stent placement (Chronic 02/20/97) 02/20/1997 J stent of proximal main CX H/O coronary artery bypass surgery (Chronic 11/17/03) CABG X 4: MILAN-LAD, SVG-OM1, Sequential Saphenous Vein Y graft from the OM1 venous graft-OM3 and LPDA 11/17/2003. Paroxysmal atrial fibrillation (Chronic) Paroxysmal atrial flutter (Chronic) Essential (primary) hypertension (Chronic) HLD (hyperlipidemia) (Chronic) Hospital Course and Treatment Operations: None Procedures: 2-D Echocardiogram Summary of Care Provided: The patient is a 74 year old M who was seen in the emergency room at [facility] after being transferred from the cardiac catheterization lab at [facility] 5 minutes after he completed heart cath when he started having confusion and trouble speaking. Stroke team was called, patient was sent to CT and no evidence of a hemorrhagic stroke was noted. [facility]-stroke evaluation was carried out and recommended TPA administration TPA bolus was administered but the patient had respiratory distress and had to be intubated in the emergency room. CTA was performed and showed several small vessel distal occlusions of the left MCA territory. Patient was admitted to ICU and seen by critical care, there was concern for non-STEMI, cardiology saw the patient in consultation and did not feel that he had a non-STEMI. Patient was finally extubated in the ICU, he followed simple commands but was hemiplegic on the right side. His respiratory status declined the day following extubation due to his inability to expectorate sputum, he had been placed on BiPAP overnight but the patient attempted to remove the mask frequently. Patient was made a DNR CC arrest by the family members. Discussions were then carried out with the patient and the patient's family regarding hospice care, there was agreement that the patient should go to the hospice care facility for terminal care. He was made a DNR comfort care. On 09/12/2019, patient was seen and examined: On examination he appeared ill. Vital signs as documented. Skin warm and dry and without overt rashes. Neck without JVD. Lungs clear. Heart exam notable for regular rhythm, normal sounds and absence of murmurs, rubs or gallops. Abdomen unremarkable and without evidence of organomegaly, masses, or abdominal aortic enlargement. Extremities nonedematous. Neuro: Cranial nerves II through XII are grossly intact, patient has right-sided flaccid paralysis psych: Patient is alert, he is aphasic, he has right-sided flaccid paralysis On 09/12/2019, patient was seen and examined and felt to be in stable condition for transfer to inpatient hospice facility, patient's prognosis was poor. - Physical Exam Vitals/I&O's: Vital Signs Temp Pulse Resp BP Pulse Ox 99.4 F H 88 26 H 166/81 H 91 09/12/19 08:00 09/12/19 10:00 09/12/19 10:00 09/12/19 10:00 09/12/19 10:00 Oxygen Flow Rate (L/min) 5 Oxygen Delivery Method Bi-pap Weight: 114.4 kg Body Mass Index (BMI) 37.7 Finger Stick Blood Glucose 90 Microbiology Past 72 Hours 09/10/19 01:15 Blood Culture (Wb) - Anticubital Left Blood Culture - Final No growth in 5 days. 09/11/19 03:00 Sputum, Induced/Lukens Gram Stain - Final 09/11/19 03:00 Sputum, Induced/Lukens Respiratory Culture - Final Presumptive C albicans 09/10/19 01:10 Urine Catheter - Andrade Urine Culture - Final Culture exhibits no growth. Home Medications: Medications to take at Discharge Aspirin [Aspirin, Baby] 81 mg PO DAILY@0800 09/19/16 Gabapentin [Neurontin] 300 mg PO BID 09/19/16 Saw Merritt 80 mg PO BID 09/19/16 docusate sodium 100 mg tablet 100 mg PO BID 09/13/17 nitroglycerin 0.4 mg sublingual tablet 0.4 mg SUBLINGUAL Q5M PRN 09/13/17 atorvastatin 40 mg tablet 40 mg PO QDAY 09/19/17 glimepiride 2 mg tablet 2 mg PO QAM 09/19/17 cholecalciferol (vitamin D3) 25 mcg (1,000 unit) capsule 1,000 unit PO DAILY 04/16/19 flaxseed oil 1,000 mg capsule 1,000 mg PO DAILY 04/16/19 mirabegron 25 mg tablet,extended release 24 hr 25 mg PO DAILY #30 tab 04/16/19 levothyroxine 25 mcg tablet 25 mcg PO DAILY tab 09/06/19 pioglitazone 30 mg tablet 30 mg PO DAILY tab 09/06/19 Amlodipine Besylate 5 mg PO BID 09/09/19 Clopidogrel Bisulfate [Clopidogrel] 75 mg PO DAILY 09/09/19 Magnesium Oxide [Mag-Ox 400] 400 mg PO DAILY 09/09/19 Metoprolol Tartrate [Lopressor (beta antoine)] 50 mg PO BID 09/09/19 Potassium Chloride 20 meq PO BID 09/09/19 Ramipril 10 mg PO BID 09/09/19 Rivaroxaban [Xarelto] 20 mg PO DAILY 09/09/19 Primary Care Physician: Omar Jose Chi, MD [Primary Care Provider] - Disposition: Hospice Medical Facility Minutes spent on discharge:: 35 Patient Condition:: Poor Medical Necessity - Tobacco Use Smoking Status: Former smoker Meaningful Use Info Meaningful Use Diagnoses (Choose all that apply): Ischemic CVA - CVA Therapy Assessed for PT,OT and/or ST?: Yes - Ischemic Stroke Antithrombotic order at d/c?: No Reason antithrombotic not ordered: Hospice Dx of Atrial fib/flutter?: Yes Anticoagulant at discharge?: No Reason anticoagulant not ordered: Hospice Statins at discharge?: No Reason Statin not ordered: Hospice Primary Dx Acute Ischemic CVA?: Yes IV tPA ordered during stay?: Yes Code Visit Inpatient E&M: 61560 Disch Hosp
== END 2019-09-12 11:30 | disposition hospice, inpatient (51) | DRG 61 ==
LOC: ED 10:59 → ICU 11:18
PROVIDERS: Internal Medicine Critical Care Medicine; Admitting Provider Hospitalist; Emergency Provider Emergency Medicine; Family Provider Family Medicine Geriatric Medicine; PCP Family Medicine Geriatric Medicine; Referring Provider Hospitalist; Visit Provider Internal Medicine
DX: I63.412 Cerebral infarction due to embolism of left middle cerebral artery (principal); N17.0 Acute kidney failure with tubular necrosis; J96.01 Acute respiratory failure with hypoxia; G81.01 Flaccid hemiplegia affecting right dominant side; R41.4 Neurologic neglect syndrome; R47.01 Aphasia; R29.725 NIHSS score 25; I48.0 Paroxysmal atrial fibrillation; N18.3 Chronic kidney disease, stage 3 (moderate); E11.22 Type 2 diabetes mellitus with diabetic chronic kidney disease; E78.5 Hyperlipidemia, unspecified; Z66 Do not resuscitate; E03.9 Hypothyroidism, unspecified; I25.10 Atherosclerotic heart disease of native coronary artery without angina pectoris; E66.9 Obesity, unspecified; Z51.5 Encounter for palliative care; Z87.891 Personal history of nicotine dependence; Z95.1 Presence of aortocoronary bypass graft; Z95.5 Presence of coronary angioplasty implant and graft; Z79.84 Long term (current) use of oral hypoglycemic drugs; Z79.01 Long term (current) use of anticoagulants; Z68.37 Body mass index [BMI] 37.0-37.9, adult
CPT/HCPCS: 31500; 31720; 36415; 36600; 51702; 70450; 70496; 70498; 70551; 71045; 71046; 74018; 76770; 80048; 80053; 80061; 80076; 82803; 82962; 83036; 83880; 84484; 85025; 85610; 85730; 87040; 87070; 87086; 87205; 87641; 93005; 93306; 93455; 94002; 94003; 94660; 94770; 97162; 97802; 99152; 99153; 99251; 99285; J2997; J7030; J7040; J7050; J7120; Q9957; Q9967; A4216; C1769; G0463; J1940; J3490